=== PATIENT | male | born 1930 | race Hispanic/Latino ===

== ENCOUNTER 2017-06-12 10:43 | Inpatient (IN) | payer MEDICARE, OTHER ==
--- NOTE | 2017-06-12 11:38 | ED PDOC ---
Arrival/HPI - General Chief Complaint: Altered Mental Status Time Seen by Provider: 06/12/17 11:22 Historian: Other (neighbor) - History of Present Illness Narrative History of Present Illness (Text): 06/12/17 11:19 A 87 year old male, whose past medical history includes dementia, is brought in by neighbor and presents to the emergency department complaining of worsening dementia. Patient's neighbor reports patient was on his way to a doctor checkup appointment, accompanied by herself and niece. When attempting to get into car, patient's knees gave out and fell, where niece caught him. Denies head trauma or LOC. Niece and neighbor report that patient has increasing episodes of dementia- thought he had a doctor's appt today, is not taking his medication, and cannot safely like alone anymore. Patient denies any complaints. PMD: Dr. Archibald Past Medical History - Provider Review Nursing Documentation Reviewed: Yes - Infectious Disease Hx of Infectious Diseases: None - Tetanus Immunization Tetanus Immunization: Unknown - Past Medical History Past Medical History: Non-Contributing - Musculoskeletal/Rheumatological Hx Falls: Yes (fell prior to admission) - Psychiatric Hx Substance Use: No - Past Surgical History Past Surgical History: Non-Contributing - Anesthesia Hx Anesthesia: Yes Hx Anesthesia Reactions: No Hx Malignant Hyperthermia: No - Suicidal Assessment Feels Threatened In Home Enviroment: No Family/Social History - Physician Review Nursing Documentation Reviewed: Yes Family/Social History: No Known Family HX Smoking Status: Unknown If Ever Smoked Hx Alcohol Use: No Hx Substance Use: No Hx Substance Use Treatment: No Allergies/Home Meds Allergies/Adverse Reactions: Allergies No Known Allergies Allergy (Verified 05/30/14 15:55) Home Medications: Home Meds Medication Instructions Recorded Confirmed Esomeprazole Magnesium [Nexium 40 mg PO DAILY 06/12/17 06/12/17 24Hr] Lubiprostone [Amitiza] 24 mcg PO BID 06/12/17 06/12/17 Mirtazapine [Remeron] 1 tab PO HS 06/12/17 06/12/17 Tamsulosin [Flomax] 1 tab PO DAILY 06/12/17 06/12/17 Review of Systems - Physician Review All systems were reviewed & negative as marked: Yes - Review of Systems Constitutional: absent: Other (no head trauma) Respiratory: absent: SOB, Cough, Wheezing Cardiovascular: absent: Chest Pain Gastrointestinal: absent: Abdominal Pain, Constipation, Diarrhea, Nausea, Vomiting Musculoskeletal: absent: Arthralgias, Neck Pain Neurological: Gait Changes ("weak knees"). absent: Dizziness, Focal Weakness, Other (no LOC) Physical Exam Vital Signs Reviewed: Yes Vital Signs Temp Pulse Resp BP Pulse Ox 06/12/17 14:26 76 18 160/100 H 100 06/12/17 13:19 200/81 H 06/12/17 13:08 71 18 200/81 H 98 06/12/17 13:00 88 18 188/107 H 96 06/12/17 12:33 181/104 H 06/12/17 10:52 97.6 F 72 18 177/123 H 96 Temperature: Afebrile Blood Pressure: Hypertensive Pulse: Regular Respiratory Rate: Normal Appearance: Positive for: Well-Appearing Pain Distress: None Mental Status: Positive for: Confused. No: Alert and Oriented X 3 (oriented x [address], not in year), Agitated Finger Stick Blood Glucose: 98 - Systems Exam Head: Present: Atraumatic, Normocephalic Pupils: Present: PERRL Extroacular Muscles: Present: EOMI Conjunctiva: Present: Normal Mouth: Present: Moist Mucous Membranes Neck: Present: Normal Range of Motion Respiratory/Chest: Present: Clear to Auscultation, Good Air Exchange. No: Respiratory Distress, Accessory Muscle Use Cardiovascular: Present: Irregular Rhythm. No: Murmurs Abdomen: Present: Normal Bowel Sounds, Hernias (soft reducible hernia). No: Tenderness, Distention, Peritoneal Signs Back: Present: Normal Inspection Upper Extremity: Present: Normal Inspection. No: Cyanosis, Edema Lower Extremity: Present: Edema (scant edema) Neurological: Present: GCS=15, CN II-XII Intact, Speech Normal. No: Memory Normal Skin: Present: Warm, Dry, Normal Color. No: Rashes Psychiatric: Present: Alert. No: Oriented x 3 (oriented x [address] , not year) Medical Decision Making ED Course and Treatment: 06/12/17 11:23 Impression: 87 year old male with worsening dementia. Physical exam shows patient is alert and oriented x [address] but not in year. Plan: -- EKG -- Head CT -- Chest X-ray -- Labs -- Urinalysis -- Reassess and disposition Prior Visits: Notes and results from previous visits were reviewed. Patient was last seen in the emergency department on 05/30/2014 for severe back pain. Patient was admitted. Progress Notes: 06/12/17 11:52 Niece who has POA wants mcc placement 06/12/2017 12:[address] IMPRESSION: 1. No acute intracranial abnormality. 2. Right posterior paramedian parietal lobe cystic encephalomalacia, sequela of remote MCA territory infarction. 3. 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 4. Mild chronic microangiopathic changes and moderate age-related global parenchymal volume loss. 5. 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 No evidence of mass effect or vasogenic edema. Dictator: Qiana Dodd MD 06/12/2017 12:33 Chest X-ray IMPRESSION: Severe cardiomegaly and moderate pulmonary venous congestion. No focal consolidation. Dictator: Qiana Dodd MD 06/12/17 12:36 Ekg shows a fib at 78 bpm with non-specific ST changes. No hx of afib and noncompliant with medications. Cxray shows severe cardiomegaly and moderate pulmonary venous congestion. Trop elevated. BNP elevated. 80mg lasix given. Aspirin given. Repeat ekg shows no STEMI. Patient denies chest pain. Will need admission for new onset afib, chf, nstemi, with cardiac consult and then mcc placement. Dr. Simon covering for Dr. Dill covering for Dr. Archibald to admit. Requesting lovenox and Dr. Lozano for cardiology 06/12/17 13:13 Patient becoming increasingly more agitated and demented. Ativan and benadryl ordered. 06/12/17 15:42 - Lab Interpretations Lab Results: 06/12/17 11:33 06/12/17 11:33 Lab Results 06/12/17 11:40: Urine Color Yellow, Urine Appearance Sl cloudy, Urine pH 6.0, Ur Specific Geyser 1.015, Urine Protein 30 H, Urine Glucose (UA) Negative, Urine Ketones Negative, Urine Blood Negative, Urine Nitrate Negative, Urine Bilirubin Negative, Urine Urobilinogen 0.2, Ur Leukocyte Esterase Negative, Urine RBC Negative, Urine WBC Negative 06/12/17 11:33: Sodium 140, Potassium 3.8, Chloride 106, Carbon Dioxide 26, Anion Gap 12, BUN 23 H, Creatinine 0.7 L, Est GFR ( Amer) > 60, Est GFR ( Non-Af Amer) > 60, Random Glucose 92, Calcium 9.0, Phosphorus 3.6, Magnesium 2.0 , Total Bilirubin 1.5 H, AST 48, ALT 59 H, Alkaline Phosphatase 364 H, Lactate Dehydrogenase 542, Total Creatine Kinase 42, Troponin I 0.21 H* D, NT-Pro-B Natriuret Pep 9880 H, Total Protein 6.9, Albumin 3.5, Globulin 3.4, Albumin/ Globulin Ratio 1.0 L 06/12/17 11:33: WBC 8.4, RBC 4.52, Hgb 13.5 L, Hct 42.7, MCV 94.5, MCH 29.9, MCHC 31.6, RDW 17.0 H, Plt Count 337, MPV 10.9, Gran % 80.6 H, Lymph % (Auto) 13.3 L, Pine % (Auto) 4.9, Eos % (Auto) 0.7 L, Baso % (Auto) 0.5, Gran # 6.75 H , Lymph # 1.1 L, Pine # 0.4, Eos # 0.1, Baso # 0.04 I have reviewed the lab results: Yes - RAD Interpretation Radiology Orders: 06/12/17 11:23 HEAD W/O CONTRAST [CT] Stat CHEST ONE VIEW [RAD] Stat - Medication Orders Current Medication Orders: Discontinued Medications Aspirin (Aspirin Chewable) 324 mg PO STAT STA Stop: 06/12/17 12:17 Last Admin: 06/12/17 12:25 Dose: 324 mg Diphenhydramine HCl (Benadryl) 50 mg IVP STAT STA Stop: 06/12/17 15:19 Last Admin: 06/12/17 15:28 Dose: 50 mg IVP Administration Document 06/12/17 15:28 MARIA FERNANDA (Rec: 06/12/17 15:28 [facility] [id number]) Charges for Administration # of IVP Administrations 1 Enoxaparin Sodium (Lovenox) 80 mg SC STAT STA PRN Reason: Protocol Stop: 06/12/17 15:03 Last Admin: 06/12/17 15:28 Dose: 80 mg Subcutaneous Administrations Document 06/12/17 15:28 [email or web address] (Rec: 06/12/17 15:28 [email or web address] [id number]) Injection Site MAR Injection Site Left Abdomen Charges for Administration # of Subcutaneous Administrations 1 Furosemide (Lasix) 40 mg IVP STAT STA Stop: 06/12/17 12:29 Last Admin: 06/12/17 12:33 Dose: 40 mg MAR Blood Pressure Document 06/12/17 12:33 SE (Rec: 06/12/17 12:35 [id number]) Blood Pressure Blood Pressure (100/60-150/90) 181/104 IVP Administration Document 06/12/17 12:33 SE (Rec: 06/12/17 12:35 [id number]) Charges for Administration # of IVP Administrations 1 Furosemide (Lasix) 40 mg IVP STAT STA Stop: 06/12/17 13:13 Last Admin: 06/12/17 13:19 Dose: 40 mg MAR Blood Pressure Document 06/12/17 13:19 SE (Rec: 06/12/17 13:19 [id number]) Blood Pressure Blood Pressure (100/60-150/90) 200/81 IVP Administration Document 06/12/17 13:19 SE (Rec: 06/12/17 13:19 [id number]) Charges for Administration # of IVP Administrations 1 Lorazepam (Ativan) 2 mg IVP ONCE STA PRN Reason: Protocol Stop: 06/12/17 14:54 Last Admin: 06/12/17 15:00 Dose: 2 mg IVP Administration Document 06/12/17 15:00 SE (Rec: 06/12/17 15:00 [facility] [id number]) Charges for Administration # of IVP Administrations 1 - Scribe Statement The provider has reviewed the documentation as recorded by the Scribelva Garcia Provider Scribe Attestation: All medical record entries made by the Scribe were at my direction and personally dictated by me. I have reviewed the chart and agree that the record accurately reflects my personal performance of the history, physical exam, medical decision making, and the department course for this patient. I have also personally directed, reviewed, and agree with the discharge instructions and disposition. Disposition/Present on Arrival - Present on Arrival Any Indicators Present on Arrival: No History of DVT/PE: No History of Uncontrolled Diabetes: No Urinary Catheter: No History of Decub. Ulcer: No History Surgical Site Infection Following: None - Disposition Have Diagnosis and Disposition been Completed?: Yes Diagnosis: New onset atrial fibrillation, NSTEMI (non-ST elevated myocardial infarction), CHF (congestive heart failure), Dementia Disposition: HOSPITALIZED Disposition Time: 12:17 Patient Plan: Admission Patient Problems: Current Active Problems Problem Status Onset New onset atrial fibrillation Acute NSTEMI (non-ST elevated myocardial infarction) Acute CHF (congestive heart failure) Acute Condition: FAIR
[2017-06-12 11:48] LABS: URINE BILIRUBIN NEGATIVE (NEGATIVE); URINE BLOOD NEGATIVE (NEGATIVE); URINE GLUCOSE (UA) NEGATIVE (NEGATIVE); URINE LEUKOCYTE ESTERASE NEGATIVE Leu/uL (NEGATIVE); URINE NITRATE NEGATIVE (NEGATIVE); URINE PROTEIN 30 mg/dL (<30 mg/dL); URINE UROBILINOGEN 0.2 E.U./dL (<1 E.U./dL)
[2017-06-12 11:54] LABS: URINE APPEARANCE SL CLOUDY (CLEAR); URINE COLOR YELLOW (YELLOW)
[2017-06-12 11:55] LABS: ALBUMIN 3.5 g/dL (3.0-4.8); ALT/SGPT 59 U/L (7-56); AST/SGOT 48 U/L (17-59); BLOOD UREA NITROGEN 23 mg/dL (7-21); GFR AFRICAN-AMERICAN > 60; GFR NON-AFRICAN AMERICAN > 60
[2017-06-12 11:56] LABS: BASO # 0.04 K/mm3 (0.0-2.0); BASO % 0.5 % (0.0-3.0); EOS # 0.1 (0.0-0.7); EOS % 0.7 % (1.5-5.0); GRAN # 6.75 (1.4-6.5); GRAN % 80.6 % (50.0-68.0); HEMOGLOBIN 13.5 g/dL (14.0-18.0); LYMPH # 1.1 (1.2-3.4); LYMPH % 13.3 % (22.0-35.0); MEAN CELL VOLUME 94.5 fl (80.0-105.0); MEAN CORPUSCULAR HEMOGLOBIN 29.9 pg (25.0-35.0); MEAN CORPUSCULAR HGB CONC 31.6 g/dl (31.0-37.0); MEAN PLATELET VOLUME 10.9 fl (7.0-11.0); MONO # 0.4 (0.1-0.6); MONO % 4.9 % (1.0-6.0); RBC 4.52 10^6/uL (3.5-6.1); WHITE BLOOD COUNT 8.4 10^3/ul (4.5-11.0)
[2017-06-12 12:09] LABS: URINE RBC NEGATIVE /hpf (0-2); URINE WBC NEGATIVE /hpf (0-6)
[2017-06-12 12:10] LABS: TROPONIN I 0.21 ng/mL
[2017-06-12 12:14] LABS: B-TYPE NATRIURETIC PEPTIDE 9880 pg/mL (0-450)
--- NOTE | 2017-06-12 12:28 | CT ---
PROCEDURE: CT HEAD WITHOUT CONTRAST. HISTORY: Altered mental status COMPARISON: MRI brain without contrast from 05/31/[address] from 05/30/2014. TECHNIQUE: Axial computed tomography images were obtained through the head/brain without intravenous contrast. Radiation dose: Total exam DLP = 981.00 mGy-cm. This CT exam was performed using one or more of the following dose reduction techniques: Automated exposure control, adjustment of the mA and/or kV according to patient size, and/or use of iterative reconstruction technique. FINDINGS: HEMORRHAGE: No intracranial hemorrhage. BRAIN: There is redemonstration of cystic encephalomalacia in the right paramedian posterior parietal lobe. There is an old lacunar infarction in the right caudate head. There are mild chronic microangiopathic changes. There is a stable 1.6 x 1.2 cm partially calcified meningioma in the left posterior fossa lateral to the cerebellar hemisphere. There is no mass effect or abnormal extra-axial fluid collection. There are coarse atherosclerotic calcifications in the cavernous carotid arteries. VENTRICLES: There is moderate age-related global parenchymal volume loss and proportionate enlargement of the ventricles and cortical sulci. CALVARIUM: The skull base and calvarium are normal. PARANASAL SINUSES: Predominantly clear. MASTOID AIR CELLS: Predominantly clear. OTHER FINDINGS: None. IMPRESSION: 1. No acute intracranial abnormality. 2. Right posterior paramedian parietal lobe cystic encephalomalacia, sequela of remote MCA territory infarction. 3. 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 4. Mild chronic microangiopathic changes and moderate age-related global parenchymal volume loss. 5. 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 No evidence of mass effect or vasogenic edema.
--- NOTE | 2017-06-12 12:35 | RAD ---
PROCEDURE: CHEST RADIOGRAPH, 1 VIEW HISTORY: Altered mental status COMPARISON: CT chest without contrast from 08/29/2014 FINDINGS: LUNGS: There is moderate pulmonary venous congestion. No focal consolidation. PLEURA: No pneumothorax or pleural fluid seen. CARDIOVASCULAR: Again seen is severe cardiomegaly. OSSEOUS STRUCTURES: No significant abnormalities. VISUALIZED UPPER ABDOMEN: Normal. OTHER FINDINGS: None. IMPRESSION: Severe cardiomegaly and moderate pulmonary venous congestion. No focal consolidation.
[2017-06-12] MEDS ORDERED: Enoxaparin 80 mg Syringe SC STA (15:02)
[2017-06-12] MEDS ORDERED: DiphenhydrAMINE 50 mg/ml Inj IVP STA (15:18)
--- NOTE | 2017-06-12 16:54 | CARD ---
APPROVED REPORT EKG Measurement Heart [id number] <Conclusion> Atrial fibrillation Nonspecific ST and T wave abnormality Prolonged QT
[2017-06-12 18:08] VITALS: BMI 24.4
[2017-06-12] MEDS ORDERED: Influenza Vaccine 60 mcg/0.5 mL SYR (4YR UP) IM ONE (18:09)
[2017-06-12] MEDS ORDERED: Pneumococcal 23-Valent Vaccine IM ONE (18:09)
[2017-06-12] MEDS ORDERED: Potassium Chloride 20 mEq ER Tab PO ONE (18:10)
--- NOTE | 2017-06-13 02:03 | CON ---
DATE: 06/12/2017 CARDIAC CONSULTATION REASON FOR CONSULTATION: AFib, possibly chronic, altered mental status and advanced dementia. BRIEF CLINICAL HISTORY: This is an 87-year-old lady male with past medical history of dementia, advanced; history of chronic atrial fibrillation who recently had admitted in [facility] after a fall, and history of chronic atrial fibrillation, was on anticoagulation, was discharged to [facility], where the patient got bruised all over, so he was discontinued from Coumadin, who called his niece at his doctor's appointment, so while trying to get into the car, his knee gave out and fell down. The niece caught him and then brought here to the Emergency Room. Denies any chest pain, shortness of breath,or any palpitation. Information obtained from the niece who is at the bedside. The patient is demented and trying to get out of the bed and climbing side rail. Wants to make urine though he has a condom catheter. Unable to get any information from him. Lying, but not in apparent distress. Denies any chest pain. PAST MEDICAL HISTORY: Significant for atrial fibrillation, was on anticoagulation since 01/2017, admitted to the [place], but he was off Coumadin because of having bruised all over. Past history also significant for hypertension, hyperlipidemia, BPH, degenerative joint disease, spinal stenosis, and difficulty walking at the baseline. SOCIAL HISTORY: Denies smoking. Denies any history of alcohol abuse as per Ragini huntley. CURRENT MEDICATIONS: The patient at home was taking Flomax, Remeron, Amitiza, and Nexium. ALLERGIES: NO KNOWN DRUG ALLERGIES. REVIEW OF SYSTEMS: As per HPI. PHYSICAL EXAMINATION: VITAL SIGNS: As follows, temperature afebrile, heart rate 98, and blood pressure 157/100. HEENT: PERRLA, intact. NECK: Supple. No carotids bruits or thyromegaly.. CHEST: Clear to auscultation. HEART: S1 and S2 regular. ABDOMEN: Soft EXTREMITIES: Clubbing and cyanosis negative. LABORATORY DATA: Blood workup as follows, WBC 8.4, hemoglobin 13.1, hematocrit 42.7, and platelet count 337. Chemistry showed sodium 140, potassium 3.0, chloride 106, carbon dioxide is 26, anion gap of 12, BUN 23, creatinine 0.7. Troponin 0.21. BNP 9880. IMPRESSION: Atrial fibrillation, chronicity unknown possibly since 01/2017, hypertension, hyperlipidemia, positive troponin, possible underlying coronary artery disease, rule out non-ST segment myocardial infarction though the patient denies any chest pain. X-ray of chest shows possible cannot rule out mild congestion. Head CT was done, no intracranial hemorrhage noted. No acute intracranial abnormality noted. Encephalomalacia and remote inferior territory infarct noted, mild chronic microangiopathic changes noted consistent with the patient's age. IMPRESSION: An 87-year-old male with a past medical history of advanced dementia, chronic atrial fibrillation, hypertension, hyperlipidemia, and difficulty in walking brought by the family because his knee gave up and he fell down. Borderline troponin positive. EKG showed atrial fibrillation, rate of 69, premature ventricular contractions. RECOMMENDATION: In view of the patient, we will try to treat patient with aggressive medical treatment. 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 We will treat medically. Further recommendation depend upon the hospital course. We will follow with you. We will get lipid profile, TSH, serial troponin. Give the Lovenox and beta-mikael, nitrates, and aspirin. We may add Plavix. Xena Lozano MD
[2017-06-13] MEDS ORDERED: Enoxaparin 80 mg Syringe SC SCH (05:00)
--- NOTE | 2017-06-13 06:42 | CP.PCM.PN ---
Subjective - Date & Time of Evaluation Date of Evaluation: 06/13/17 Time of Evaluation: 06:41 - Subjective Subjective: Patient was seen at bedside because 1:1 sitter was requested. Also, Urine noted to be darker. No other complaints. Medical record was reviewed. 87 year old white male was admitted with history of fall outside of his house while going to his doctor's office, NSTEMI, new onset atrial fibrillation. PMH of BPH, dementia, chronic constipation, falls. Objective - Vital Signs/Intake and Output Vital Signs (last 24 hours): Temp Pulse Resp BP Pulse Ox 97.6 F 67 18 166/100 H 100 06/12/17 17:53 06/13/17 06:00 06/12/17 17:53 06/12/17 23:00 06/12/17 16:52 - Medications Medications: Current Medications Aspirin (Ecotrin) 81 mg PO DAILY [facility] Clopidogrel Bisulfate (Plavix) 75 mg PO DAILY [facility] Diltiazem HCl (Cardizem) 60 mg PO QID [facility] Last Admin: 06/12/17 22:02 Dose: 60 mg Furosemide (Lasix) 40 mg IV DAILY [facility] Hydralazine HCl (Apresoline) 10 mg IVP Q6 PRN PRN Reason: for SBP>170 Lorazepam (Ativan) 1 mg IVP Q6H PRN; Protocol PRN Reason: Agitation Last Admin: 06/12/17 21:52 Dose: 1 mg Metoprolol Tartrate (Lopressor) 25 mg PO BID [facility] Last Admin: 06/12/17 19:01 Dose: 25 mg - Constitutional Appears: Well, No Acute Distress - Head Exam Head Exam: ATRAUMATIC, NORMAL INSPECTION, NORMOCEPHALIC - Eye Exam Eye Exam: Normal appearance - ENT Exam ENT Exam: Normal External Ear Exam - Neck Exam Neck Exam: Normal Inspection - Respiratory Exam Respiratory Exam: NORMAL BREATHING PATTERN - Cardiovascular Exam Cardiovascular Exam: absent: JVD - GI/Abdominal Exam GI & Abdominal Exam: absent: Distended - Rectal Exam Rectal Exam: Deferred - Exam Additional comments: Deferred. - Extremities Exam Extremities Exam: Normal Inspection - Back Exam Back Exam: NORMAL INSPECTION - Neurological Exam Neurological Exam: Altered - Psychiatric Exam Psychiatric exam: Agitated - Skin Skin Exam: Normal Color Assessment and Plan - Assessment and Plan (Free Text) Assessment: Agitation. NSTEMI. Atrial fibrillation. BPH. Dementia. Plan: 1:1 Sitter. Continue present management as per PMD.
--- NOTE | 2017-06-13 10:04 | CARD ---
APPROVED REPORT EKG Measurement Heart [id number] <Conclusion> Atrial fibrillation with premature ventricular or aberrantly conducted complexes Low voltage QRS limb leads Nonspecific ST and T wave abnormality No change
[2017-06-13 11:32] LABS: BASO # 0.01 K/mm3 (0.0-2.0); BASO % 0.1 % (0.0-3.0); GRAN # 11.94 (1.4-6.5); GRAN % 87.3 % (50.0-68.0); HEMOGLOBIN 14.6 g/dL (14.0-18.0); LYMPH # 0.7 (1.2-3.4); LYMPH % 5.2 % (22.0-35.0); MEAN CELL VOLUME 92.5 fl (80.0-105.0); MEAN CORPUSCULAR HEMOGLOBIN 30.5 pg (25.0-35.0); MEAN PLATELET VOLUME 10.5 fl (7.0-11.0); MONO % 7.4 % (1.0-6.0); RBC 4.78 10^6/uL (3.5-6.1); RED CELL DISTRIBUTION WIDTH 17.1 % (11.5-14.5); WHITE BLOOD COUNT 13.7 10^3/ul (4.5-11.0)
[2017-06-13 11:45] LABS: ALB/GLOB RATIO 1.1 (1.1-1.8); CALCIUM 9.5 mg/dL (8.4-10.5); MAGNESIUM 2.1 mg/dL (1.7-2.2)
[2017-06-13 12:46] LABS: TROPONIN I 0.2 ng/mL
--- NOTE | 2017-06-13 12:46 | HP ---
06/12/2017 HISTORY OF PRESENT ILLNESS: Mr. Gonsalez is an 87-year-old male brought to the ED by a neighbor because of advanced dementia. He fell outside the house also while going to the doctor's office. He was brought to the ED by the neighbor, found to have atrial fibrillation with the rapid heart rate. There is no history of atrial fibrillation in the past. He has a history of BPH, on Flomax. No urinary problems right now. Also he has chronic constipation, has been on Amitiza 24 mcg p.o. b.i.d. No abdominal distention, no bleeding per rectum, does not report any problem with the constipation. PAST MEDICAL HISTORY: Dementia, history of falls, chronic constipation, and BPH. PAST SURGICAL HISTORY: None. ALLERGIES: NO KNOWN DRUG ALLERGIES. MEDICATIONS: Nexium 40 mg daily, Amitiza 24 mcg b.i.d., Remeron one tablet p.o. at bedtime, and Flomax one tablet daily. REVIEW OF SYSTEMS: As per HPI. Rest of 12-point review of systems reviewed and negative. PHYSICAL EXAMINATION: GENERAL: Comfortable in bed, in no acute distress. VITAL SIGNS: Temperature 97.8, heart rate is 72 per minute, respiratory is 18 per minute, blood pressure is 160/100, and pulse is 100 per minute, pulse oximetry is 98% on room air. HEENT: Normal. Oral mucosa dry. NECK: No lymphadenopathy. CHEST: Air entry present and equal bilaterally. No added sounds. CARDIOVASCULAR: Regular rhythm. No murmur. No gallop. ABDOMEN: Soft and nontender. No hepatosplenomegaly. EXTREMITIES: No edema. EKG, atrial fibrillation at 70 beats per minute. Nonspecific ST-T changes. Chest x-ray, cardiomegaly, moderate pulmonary congestion. No consolidation. LABORATORY DATA: White count 8.4, hemoglobin 13.5, hematocrit 42.7, and platelets . Sodium 140, potassium 3.8, BUN 23, creatinine 0.7, glucose 92, and total bilirubin 1.5. ASSESSMENT: 1. New onset atrial fibrillation. 2. Non-ST elevation myocardial infarction. 3. Congestive heart failure. 4. Advanced dementia. 5. Anemia. 6. Benign prostatic hyperplasia. PLAN: He will be admitted to the hospital. Aspirin 81 mg daily, Plavix 75 mg daily, diltiazem 60 mg p.o. four times a day, Lasix 40 mg IV daily, hydralazine 10 mg IV q.6 hours, and metoprolol 25 mg p.o. b.i.d. Cardiology consultation Dr. Lozano requested. Mirna Simon MD IGNACIO
[2017-06-13] MEDS: Sodium Chloride 0.9% 1,000 ML IV SCH (13:06)
--- NOTE | 2017-06-13 13:51 | PN ---
DATE: 06/13/2017 REASON FOR CONSULTATION AND FOLLOWUP: AFib, chronic altered mental status, hematuria, advanced dementia. SUBJECTIVE: The patient denies any chest pain, shortness of breath, or any palpitations, sleeping one-to-one observation. On waking up, he denies any chest pain, shortness of breath, or any palpitations. OBJECTIVE: GENERAL: Not in apparent distress. Last night, the patient was combative. Now, the patient is lying quiet. VITAL SIGNS: As follows. Temperature afebrile, heart rate 67, blood pressure 156/100. HEENT: PERRLA. Extraocular muscles intact. NECK: Supple. No carotid bruits or thyromegaly. CHEST: Clear to auscultation. HEART: S1 and S2, regular. ABDOMEN: Soft. EXTREMITIES: Clubbing and cyanosis are negative. LABORATORY DATA: Blood workup as follows: WBC 8.4, hemoglobin 13, hematocrit 42.7, and platelet count 337. Chemistry shows sodium 144, potassium 3.8, chloride 106, carbon dioxide 26, anion gap of 12, BUN 20, and creatinine 0.7. Troponin 0.27. BNP 980. IMPRESSION: Atrial fibrillation, chronic, now with rapid rate. He was on anticoagulation at one point, but stopped at [facility] because of the bruised congestive heart failure, positive troponin, advanced dementia combative and hematuria. RECOMMENDATIONS: The patient was started on Lovenox, but last night had hematuria, so this was held. Continue aspirin and Plavix. The patient has been having a condom catheter, but he keeps on pulling this and climbing on the side rails. I discussed with Mya huntley, who was at the bedside yesterday. For now, continue Cardizem 60 mg four times daily. Continue aspirin. Continue Plavix. Continue Lasix daily. Continue metoprolol 25 mg p.o. b.i.d. As mentioned, Lovenox on hold because of hematuria. Medical treatment conservative. The patient is not in a shape mental seals to go to the cardiac cath tech, is more detrimental, because the patient can pull the line and can bleed to in the cath because of dementia. He is asymptomatic. No chest pain. We will treat unstable angina medically and be managed medically. We will get echo to assess LV function and supplement potassium with electrolytes. We will follow with you. Awaiting for blood workup to be completed. We will follow serial CPK and troponin as well. Thank you Dr. Simon for providing us the opportunity in taking care of Sunshine Toribio. Xena Lozano MD
--- NOTE | 2017-06-13 16:26 | CARD ---
APPROVED REPORT EXAM: Two-dimensional and M-mode echocardiogram with Doppler and color Doppler. INDICATION 2D DIMENSIONS IVSd1.3 (0.7-1.1cm)LVDd5.0 (3.9-5.9cm) PWd1.2 (0.7-1.1cm)LVDs4.6 (2.5-4.0cm) FS (%) 8.0 %LVEF (%)17.7 (>50%) M-Mode DIMENSIONS Left Atrium (MM)5.90 (2.5-4.0cm)Aortic Root3.60 (2.2-3.7cm) Aortic Cusp Exc.2.40 (1.5-2.0cm) Aortic Valve AoV Peak Ynfmpobr124.0cm/Herminio Peak GR.5mmHgAI P 1/2 Iisc099ly Mitral Valve MV E Dsssjtlv83.8cm/s TDI Lateral E' Peak V10.40cm/sMedial E' Peak V5.21cm/sE/Lateral E'5.5 E/Medial E'10.9 Tricuspid Valve TR Peak Shaaimmy486wz/sRAP [id number] Peak Gr.59mmHg [id number] LEFT VENTRICLE The left ventricle is normal size. There is mild concentric left ventricular hypertrophy. The systolic function is moderately to severely impaired.EF-25-30% There is mild to moderate hypokinesis in the apical anterior wall. A fib No left ventricle thrombus noted on this study. There is no ventricular septal defect visualized. There is no left ventricular aneurysm. There is no mass noted in the left ventricle. RIGHT VENTRICLE The right ventricle is mildly to moderately dilated. There is normal right ventricular wall thickness. Systolic function is moderately reduced. ATRIA The left atrium is moderately dilated. The right atrium is moderately dilated. The interatrial septum is intact with no evidence for an atrial septal defect. AORTIC VALVE The aortic valve is thickened but opens well. There is moderate aortic regurgitation. There is no aortic valvular stenosis. There is no aortic valvular vegetation. MITRAL VALVE The mitral valve is thickened but opens well. Mitral regurgitation is mild. There is no mitral valve stenosis. There is no evidence of mitral valve prolapse. TRICUSPID VALVE The tricuspid valve leaflets are thickened or calcified, but open well. There is moderate to severe tricuspid regurgitation.RVSP-69 mmof hg. There is no tricuspid valve stenosis. There is no tricuspid valve prolapse or vegetation. PULMONIC VALVE The pulmonic valve is mildly thickened. There is mild pulmonic valvular regurgitation. There is no pulmonic valvular stenosis. GREAT VESSELS The aortic root is normal in size. The ascending aorta is normal in size. The pulmonary artery is normal. The IVC was not visualized. PERICARDIAL EFFUSION There is no pleural effusion. There is no pericardial effusion. <Conclusion> The left ventricle is normal size. There is mild concentric left ventricular hypertrophy. The systolic function is moderately to severely impaired.EF-25-30% There is moderate aortic regurgitation. Mitral regurgitation is mild. There is moderate to severe tricuspid regurgitation.RVSP-69 mmof hg. The IVC was not visualized. There is no pericardial effusion.
[2017-06-14] MEDS: Sodium Chloride 0.9% 1,000 ML IV SCH ×3 (09:07→23:16)
[2017-06-14 10:30] LABS: INR 1.09 (0.93-1.08); PARTIAL THROMBOPLASTIN TIME 31.5 Seconds (25.1-36.5); PROTHROMBIN TIME 12.6 SECONDS (9.4-12.5)
--- NOTE | 2017-06-14 22:45 | PN ---
DATE: 06/13/2017 SUBJECTIVE: He is comfortable in bed. He has episodes of agitation. He has a condom catheter draining bloody urine. He is currently on Lovenox for non-STEMI. He is not oriented, not alert. He is able to swallow, being said with assistance. No fever. No cough with expectoration. Vitals are stable. REVIEW OF SYSTEMS: As per HPI. Rest of 12-point review of systems reviewed and negative. PHYSICAL EXAMINATION: GENERAL: Comfortable in bed in no acute distress. VITAL SIGNS: Temperature 98.7, heart rate is 60 per minute, blood pressure 145/90, respiratory rate 16 per minute. HEENT: Normal. Sensorium altered. Non-communicative. Arousable. CHEST: Air entry present and equal bilateral. No added sounds. CARDIOVASCULAR: S1 and S2 normal. No murmur. No gallop. ABDOMEN: Soft and nontender. No hepatosplenomegaly. EXTREMITIES: No edema. Catheter draining bloody urine. RESEARCH ASSOC: Non communicative. Not alert. Moving all the limbs. No focal sensory or motor deficit. MEDICATIONS: Aspirin 81 mg daily, Plavix 75 mg daily, Cardizem 60 mg p.o. four times daily, Lasix 40 mg IV daily, hydralazine p.r.n., Ativan IV 1 mg q. 6 hours p.r.n., Lovenox b.i.d., metoprolol 25 mg p.o. b.i.d., IV fluids at 60 mL an hour. ASSESSMENT: 1. Wcr-UK-[id number] myocardial infarction. 2. Atrial fibrillation with rapid heart rate. 3. Hematuria. 4. Benign prostatic hypertrophy. 5. Anemia. PLAN: We will hold Lovenox. Troponin elevated 0.20. Continue aspirin and Plavix. Cardiology consultation appreciated. We will continue Cardizem. Heart rate is better controlled with current medications. Sensorium is alerted. He has dementia. We will start IV fluids at 60 mL an hour because of hematuria. We will continue to monitor electrolytes. No evidence of infection. UA negative. We will continue to monitor hemoglobin and hematocrit closely. Mirna Simon MD [facility] # [id number]
--- NOTE | 2017-06-15 00:09 | PN ---
DATE: 06/14/2017 SUBJECTIVE: He is comfortable in bed, in no acute distress. He has episodes of agitation. He is currently on one-to-one. He continues to have hematuria. He has a condom catheter. He continues to be on aspirin, Plavix for non-STEMI. Lovenox is on hold. Heart rate is better controlled with current medications. Hemoglobin and hematocrit has been stable. Leukocytosis is elevated, white count of 13.7. CURRENT MEDICATIONS: Aspirin 81 mg daily, Plavix 75 mg daily, Cardizem 60 mg p.o. q.i.d., Lasix 40 mg IV daily, hydralazine p.r.n., Ativan 1 mg q. 6 hours p.r.n., Lopressor 25 mg p.o. b.i.d., sodium chloride 60 mL an hour. PHYSICAL EXAMINATION: GENERAL: Comfortable in bed, in no acute distress. VITAL SIGNS: Temperature 98.7, heart rate is 108 per minute, blood pressure 140/90, respiratory rate is 16 per minute, oxygen saturation is 98% on room air. HEENT: Normal. Oral mucosa dry. NECK: No lymphadenopathy. CHEST: Air entry present and equal bilaterally. No added sounds. CARDIOVASCULAR: S1 and S2 irregular with no murmur, no gallop. ABDOMEN: Soft and nontender. No hepatosplenomegaly. EXTREMITIES: No edema. BEHAVIORAL INTERVENTIONIST: Not communicative, arousable, not oriented. Moving all the legs. SPINE: Nontender. SKIN: No petechiae. No rash. LABORATORY DATA: White count 13.7, hemoglobin 14.6, hematocrit 44.2, and platelet count 368. Sodium 146, potassium 4.4, creatinine 1.6, troponin 0.20. LFTs were within normal limits. Elevated alkaline phosphatase 356. ASSESSMENT: 1. Hematuria. 2. Non-ST elevation myocardial infarction. 3. Leukocytosis. 4. Benign prostatic hyperplasia. 5. Atrial fibrillation, heart rate controlled with current medications. PLAN: We will hold Plavix tomorrow. Urology consultation with Dr. Lujan is requested. Gentle hydration at 60 mL an hour normal saline. We will continue to monitor hemoglobin, hematocrit. Cardiology consultation with Dr. Lozano appreciated. Heart rate better controlled with current medications. Mirna Simon MD [facility] # [id number]
--- NOTE | 2017-06-15 01:04 | PN ---
DATE: SUBJECTIVE: I was asked to evaluate the patient because of bradycardia and hypertension. The patient has dementia and does not communicate. He is on one-to-one watch. He did eat some of his dinner. PHYSICAL EXAMINATION: VITAL SIGNS: Blood pressure 145/90, heart rate 60, earlier heart rate was 45 and then 55 beats per minute, respirations 21, and temperature 97.3. HEENT: Normocephalic. CHEST: Diminished breath sounds. HEART: S1 and S2 regular. EXTREMITIES: Trace leg edema. LABORATORY DATA: Yesterday's troponin 0.2. Yesterday's BUN and creatinine 38 and 1.6. Echocardiac study performed yesterday revealed mild concentric LVH with ejection fraction in the range of 25% to 30%, moderate aortic insufficiency. EKG revealed atrial fibrillation at a rate of 69. PVCs versus aberrancy, prolonged QT interval, anterior ischemic Q-wave changes, that EKG was done 2 days ago on 06/12/2017. ASSESSMENT: 1. Atrial fibrillation initially rapid, currently with slow ventricular response. 2. Borderline troponin elevation, consider non-ST elevation myocardial infarction. 3. Chronic renal insufficiency. 4. Advanced dementia. 5. History of recent hematuria. CONDITIONS: Hold Cardizem and Lopressor for now. Continue aspirin at 81 mg once a day, Plavix 75 mg once a day, and hydralazine at 10 mg intravenously q.6 hour p.r.n. We will evaluate the patient tomorrow for resumption of either Cardizem or Lopressor or both. Fuentes Ewing MD
[2017-06-15] MEDS: Sodium Chloride 0.9% 1,000 ML IV SCH ×2 (15:15→17:29)
--- NOTE | 2017-06-15 18:53 | PN ---
DATE: SUBJECTIVE: The patient's lowest heart rate today was 60 and high is 75. He ate his lunch and he is on one-to-one watch. PHYSICAL EXAMINATION: VITAL SIGNS: Blood pressure 139/90, heart rate 75, temperature 97.5 and respirations 20. HEENT: Normocephalic. CHEST: Diminished breath sounds at the bases. HEART: S1 and S2 regular. ABDOMEN: Soft. EXTREMITIES: No edema. ASSESSMENT: 1. Atrial fibrillation with recently slow ventricular response since yesterday. 2. Borderline troponin elevation, consider non-ST elevation myocardial infarction. 3. Advanced dementia. 4. Chronic renal insufficiency. 5. History of recent hematuria. RECOMMENDATIONS: Continue current Lasix 40 mg intravenously once a day, Lopressor is still on hold, Cardizem at 60 mg four times a day and aspirin 81 mg once a day. Future anticoagulation will be discussed with Dr. Lozano. Fuentes Ewing MD
--- NOTE | 2017-06-16 00:32 | PN ---
DATE: 06/15/2017 SUBJECTIVE: The patient has no complaints of any chest pain. No shortness of breath. No headaches. PHYSICAL EXAMINATION: VITAL SIGNS: Temperature is 98, pulse is 65, blood pressure is 124/78, and respirations are 18. GENERAL: The patient is lying in bed, flat, comfortable. HEENT: No oral lesion. Anicteric sclerae. Moist mucosa. NECK: No JVD, adenopathy, or thyromegaly. CARDIOVASCULAR: S1 and S2, regular. No murmurs, rubs, or gallops. LUNGS: Clear to auscultation bilaterally. No wheeze, rales, or rhonchi. ABDOMEN: Bowel sounds are positive, soft, nontender and nondistended. EXTREMITIES: No cyanosis, clubbing or edema. ASSESSMENT: 1. Hematuria. 2. Non-ST elevation myocardial infarction. 3. Benign prostatic hyperplasia. 4. Atrial fibrillation. 5. Dementia. 6. Hematuria. PLAN: The patient is currently comfortable. The patient is on Cardizem. He is receiving aspirin. The patient is on Lasix daily. He is receiving IV fluids as well. I will discontinue his IV fluids. He is being followed by Dr. Lujan from Urology. He is being followed by Cardiology. He is on a on-to-one. . Modesto Jones MD
[2017-06-16 10:34] LABS: BASO # 0.03 K/mm3 (0.0-2.0); BASO % 0.2 % (0.0-3.0); EOS # 0.3 (0.0-0.7); EOS % 2.5 % (1.5-5.0); GRAN # 11.48 (1.4-6.5); GRAN % 85.3 % (50.0-68.0); HEMOGLOBIN 14.3 g/dL (14.0-18.0); LYMPH # 0.5 (1.2-3.4); LYMPH % 3.7 % (22.0-35.0); MEAN CELL VOLUME 93.2 fl (80.0-105.0); MEAN CORPUSCULAR HEMOGLOBIN 29.7 pg (25.0-35.0); MEAN CORPUSCULAR HGB CONC 31.8 g/dl (31.0-37.0); MEAN PLATELET VOLUME 10.7 fl (7.0-11.0); MONO # 1.1 (0.1-0.6); MONO % 8.3 % (1.0-6.0); PLATELET COUNT 290 10^3/uL (120.0-450.0); RBC 4.82 10^6/uL (3.5-6.1); RED CELL DISTRIBUTION WIDTH 16.7 % (11.5-14.5); WHITE BLOOD COUNT 13.5 10^3/ul (4.5-11.0)
[2017-06-16 10:55] LABS: ALB/GLOB RATIO 0.8 (1.1-1.8); ALBUMIN 2.8 g/dL (3.0-4.8); ALT/SGPT 29 U/L (7-56); AST/SGOT 26 U/L (17-59); BLOOD UREA NITROGEN 42 mg/dL (7-21); CALCIUM 8.4 mg/dL (8.4-10.5); GFR AFRICAN-AMERICAN > 60; GFR NON-AFRICAN AMERICAN > 60; MAGNESIUM 1.8 mg/dL (1.7-2.2)
[2017-06-16 11:32] LABS: BAND 1 % (0-2); EOSINOPHIL 2 % (0.0-3.0); LYMPHOCYTE 7 % (22.0-35.0); MONOCYTE 3 % (1.0-6.0); NEUTROPHIL 87 % (50.0-70.0); PLATELET ESTIMATE NORMAL (NORMAL)
[2017-06-16] MEDS: Potassium Chloride 20 mEq ER Tab PO SCH (12:12)
[2017-06-16] MEDS ORDERED: Potassium Chloride 20 mEq ER Tab PO ONE (14:00)
--- NOTE | 2017-06-16 16:31 | PN ---
DATE: 06/16/2017 REASON FOR CONSULTATION AND FOLLOWUP: Atrial fibrillation with slow heart rate. SUBJECTIVE: The patient denies any chest pain, shortness of breath, or any palpitation. OBJECTIVE: GENERAL: The patient denies chest pain and one-to-one observation. VITAL SIGNS: As follows. Temperature afebrile, heart rate 76, and blood pressure 134/60. HEENT: PERRLA. Extraocular muscles intact. NECK: Supple. No carotid bruits or thyromegaly. CHEST: Clear to auscultation. HEART: S1 and S2, regular. ABDOMEN: Soft. EXTREMITIES: Clubbing and cyanosis are negative. LABORATORY DATA: Blood workup as follows: WBC 13.5, hemoglobin 14.0, hematocrit 44.9, and platelet count 290. Chemistry shows sodium 144, potassium 3, chloride 107, carbon dioxide 30, anion gap of 11, BUN 42, and creatinine 0.9. IMPRESSION: Severe hypokalemia, protein-calorie malnutrition, atrial fibrillation with rapid rate now rate is well controlled, demented, borderline troponin, ST elevation, chronic renal insufficiency, history of recent hematuria off Lovenox because of blessing hematuria. The patient had echocardiography done on 06/13/2017 that showed ejection fraction 25% to 30%, moderate aortic regurgitation, moderate to severe tricuspid regurgitation, right ventricular systolic pressure 69. RECOMMENDATIONS: Adjust Cardizem change to 4 times a day . Continue metoprolol. We will change Cardizem to 30 mg 4 times a day with holding parameter. The patient is not anticoagulation because of blessing hematuria started and Lovenox held because of blessing hematuria. If the patient can tolerate, we will continue Plavix. We will supplement potassium and decrease Cardizem to 30 with holding parameter. We will follow with you. 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 We will treat medically asymptomatic. Thank you Dr. Simon for providing us the opportunity in taking care of the patient, Catarino Gonsalez. Xena Lozano MD
[2017-06-16] MEDS: Potassium & Sodium Phosphate PO SCH (17:02)
--- NOTE | 2017-06-17 08:17 | CON ---
DATE: 06/16/2017 GENITOURINARY CONSULTATION CHIEF COMPLAINT: Gross hematuria. HISTORY OF PRESENT ILLNESS: This is an 87-year-old male, who is seen in his room at [facility]. The patient was admitted for worsening dementia and falling at home, neighbor called EMS as they either noticed him falling or his worsening dementia and altered mental status. He was brought to the emergency department, he was found to have new onset atrial fibrillation with rapid ventricular rate. At some point, the patient was anticoagulated, he was noted to have gross hematuria, and consultation was requested. By history, he has BPH and has been on Flomax. Reportedly, he was voiding without any difficulty other than the hematuria. He now has a Mir catheter in place. The patient is awake and alert and answering questions, but unable to give a history given his advanced dementia. PAST MEDICAL HISTORY: Significant for dementia, history of falls, chronic constipation, and BPH. MEDICATIONS AT HOME: Included Nexium, Amitiza, Remeron and Flomax. Currently on aspirin and Plavix, as well as Lasix, potassium, hydralazine, Ativan, and Cardizem. ALLERGIES: NO KNOWN DRUG ALLERGIES. FAMILY HISTORY: Noncontributory to this admission. SOCIAL HISTORY: No reported smoking or EtOH use. REVIEW OF SYSTEMS: As per the HPI. The patient is currently denying any acute issues. PHYSICAL EXAMINATION: GENERAL: The patient is awake and alert. He is in no acute distress. VITAL SIGNS: He is afebrile, temperature of 97.7, pulse 76, respirations 20, and BP 130/67. NECK: Supple. There is no adenopathy. CHEST: Examination of the chest reveals a normal inspiratory effort. CARDIAC: Exam shows an irregular rhythm. There is trace peripheral edema noted. ABDOMEN: On abdominal exam, the abdomen is soft, nontender, nondistended. There is no hepatosplenomegaly. There is no costovertebral angle tenderness. : On exam, phallus is normal. Scrotum is normal. Testes bilaterally descended, nontender, no masses. Epididymis are normal. There is a Mir catheter in place which is draining clear colored urine. LABORATORY EXAM: WBC count elevated at 13.5. BNP was 9880 from 06/12, creatinine 0.9 with a GFR of greater than 60. Urinalysis from 06/12 showed positive for protein, negative blood, negative rbc, negative wbc. Urine culture from the Mir grew coagulase-negative Staphylococcus. RADIOLOGIC EXAM: No pertinent urologic x-rays were done. IMPRESSION AND PLAN: This is an 87-year-old male with history of benign prostatic hypertrophy. Urologically, the patient is currently stable, Mir catheter in place, his GFR is normal. As far the finding of hematuria, this is likely secondary to Mir trauma and anticoagulation with Plavix and aspirin. The patient has been maintained on Flomax and I would consider a voiding trial when his status has improved. We will need to check a postvoid residual after the catheter is removed. It is unclear if the patient is going home or to rehab given his advanced dementia, but we will likely need a long-term plan regarding this patient given his current status. Thank you for allowing me to participate in the care of this patient. We will follow him with you. Jaime Lujan MD
--- NOTE | 2017-06-17 08:17 | CON ---
DATE: 06/16/2017 PRESENTATION: The patient is an 87-year-old male seen at the bedside, one-to-one in attendance. He has extensive bruising on his left arm, which he is really unable to tell me what happened there. The patient was admitted to the hospital on 06/12/2017, indicates that he fell when he was going from one car to the other. He was not able to tell me what he was doing, going in the car, he was unable to tell me who was with him other than they brought him here to the hospital, he was unsure what hospital because they brought him here and did not say which one, and I did remind him it was [facility], he was not able to tell me later on in our conversation what hospital he was in. He indicates that he fell down, he was not hurt and they brought him here, anyway he wants to go back home. Evidently, he had a niece with him who indicates that his dementia was getting worse and that is a concern. Consult was called due to the patient is needing one-to-one and having combative behavior. It appears that from what little history there is that the patient has been diagnosed with dementia and it is worsening according to his niece. The patient is oriented only to who he is. He is not able to tell me the year, the date, the time, the president, or anything that is going on in the news, though he does claim to watch the news everyday. He indicates he lives alone, he never , and he is always taking care of himself for the last 30 years. 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 He indicates that he has an apartment, that he sometimes goes and buys his own food. He says he is not so much of a cook, so that is an issue because he enjoys his food, he enjoys eating. He indicates that he is able to upkeep his apartment as well. He denies ever been seeing a psychiatrist or ever having been taking any psychiatric medication in the past or ever having any suicidal thoughts or trying to kill himself. He is unable to tell me anything about his medical history. He denies ever using alcohol or drugs. He denies any access to weapons. He was not able to tell me any family psychiatric history or much of a psychosocial history other than that he fell, other than that he graduated from high school and he worked as a flanging machine operator and he has never been and has no children. The patient's current vital signs include heart rate of 73 and blood pressure of 130/67. The patient as of 06/15/2017 was found to have coagulase-negative Staph in his urine. Urinary tract infection would certainly cause some changes in the patient's behavior and consciousness at this age. LABORATORY DATA: Labs were reviewed. His white blood cell count today is 13.5, which is down from yesterday, 06/13/2017, which was 13.7. MENTAL STATUS: The patient is alert, but only oriented to who he is. He does relate he is in the hospital if I push him, but he is unable to remember the hospital even after I have told him and I am asking him again for the second time and later on in the conversation. He is pleasantly confused and cooperative evidently. According to the nurses's notes, he was combative during the night. One issue here is that the patient is extremely hard of hearing. I have to yell very loudly for him to hear me and sits close to him. He denies being suicidal or homicidal. Denies the presence of hallucinations, delusions, or paranoia. His concentration and focus are poor. His memory both short and long-term have significant impairment. His appetite and his sleep, he indicates, are good. DIAGNOSTIC IMPRESSION: Dementia with behavioral disturbance and possible delirium due to urinary tract infection. PLAN: The patient has poor orientation and exam indicates that he has very poor ability to recall. I would wonder whether or not he is able to care of himself in his home and what conditions at home actually he is in. He is pleasant at this point in time, but he is significantly confused. He does not appear to be of any imminent danger to himself or others; however, he does require supervision. I understand according to the notes that social media intern is involved in terms of placement for this patient. This case has been discussed with Dr. Goldberg. We are signing off. Please call if there are further issues with this patient. Ragini Negrete APN [facility] # [id number] IGNACIO
--- NOTE | 2017-06-17 08:19 | PN ---
DATE: 06/16/2017 SUBJECTIVE: The patient is an 87-year-old seen and examined, lying in bed, seemed to be confused, disoriented, not in any distress. Does not offer any complaint. As per nurse, did not eat that well. He is on one-to-one currently because of his confusion and high risk fall. The patient has been draining clear urine. No evidence of hematuria. PHYSICAL EXAMINATION: VITAL SIGNS: He is afebrile, pulse 73, respirations 18, and blood pressure 136/67. LUNGS: Bilateral fair airflow. Diffusely decreased breath sounds. HEART: S1 and S2, audible. Irregular, but rate controlled. ABDOMEN: Soft and nontender. No rebound. No guarding. NEUROLOGIC: The patient is confused, disoriented, able to move all extremities, unable to comprehend his conversation. LABORATORY DATA: His echocardiogram shows normal ventricular size, mild concentric LVH and EF is 25-30%. Today's laboratory exam; WBC 13.5, hemoglobin 14, hematocrit 44, and platelets 290. Chemistry; sodium 144, potassium 3.0, chloride 107, CO2 30, BUN 42, creatinine 0.9, blood sugar of 128, phosphorus 2.3, alkaline phosphatase is 193, and albumin is 2.8. ASSESSMENT: 1. Altered mental status. 2. Coagulase-negative Staphylococcus urinary tract infection. 3. Atrial fibrillation. 4. Dilated cardiomyopathy with ejection fraction of 15-20%. 5. Benign prostatic hyperplasia. 6. Dementia. 7. Non-ST elevation myocardial infarction PLAN: Currently, the patient is on diltiazem 60 mg four times a day and aspirin 81 daily. He is on Lasix. Continue him on beta-mikael. He is also getting Plavix. Get out of bed to chair. Physical therapy evaluation has been requested. I will try to discuss with the patient's niece who is next of kin about disposition plan. We will also supplement the potassium and supplement with Neutra-Phos. Parish Dill MD
[2017-06-17] MEDS: Potassium Chloride 20 mEq ER Tab PO SCH (08:23)
[2017-06-17] MEDS: diltiaZEM 120 mg/24 Hours CD Cap PO SCH (10:04)
[2017-06-17] MEDS: Potassium & Sodium Phosphate PO SCH ×2 (10:04→18:08)
[2017-06-17 11:09] LABS: BASO # 0.03 K/mm3 (0.0-2.0); BASO % 0.2 % (0.0-3.0); EOS # 0.3 (0.0-0.7); EOS % 1.8 % (1.5-5.0); GRAN # 13.47 (1.4-6.5); GRAN % 86.6 % (50.0-68.0); HEMOGLOBIN 14.9 g/dL (14.0-18.0); LYMPH # 0.9 (1.2-3.4); LYMPH % 5.5 % (22.0-35.0); MEAN CELL VOLUME 94.6 fl (80.0-105.0); MEAN CORPUSCULAR HEMOGLOBIN 29.8 pg (25.0-35.0); MEAN CORPUSCULAR HGB CONC 31.5 g/dl (31.0-37.0); MEAN PLATELET VOLUME 10.6 fl (7.0-11.0); MONO # 0.9 (0.1-0.6); MONO % 5.9 % (1.0-6.0); RED CELL DISTRIBUTION WIDTH 16.7 % (11.5-14.5); WHITE BLOOD COUNT 15.6 10^3/ul (4.5-11.0)
[2017-06-17 11:28] LABS: ALB/GLOB RATIO 0.9 (1.1-1.8); ALBUMIN 2.9 g/dL (3.0-4.8); ALT/SGPT 23 U/L (7-56); AST/SGOT 24 U/L (17-59); BLOOD UREA NITROGEN 31 mg/dL (7-21); CALCIUM 8.4 mg/dL (8.4-10.5); GFR AFRICAN-AMERICAN > 60; GFR NON-AFRICAN AMERICAN > 60; MAGNESIUM 1.8 mg/dL (1.7-2.2)
--- NOTE | 2017-06-17 14:16 | PN ---
DATE: 06/17/2017 REASON FOR CONSULTATION AND FOLLOWUP: Atrial fibrillation with slow heart rate, now with moderate rate. SUBJECTIVE: Denies any chest pain, shortness of breath, or any palpitation. Yesterday, niece was at the bedside, explained the patient's condition and overall treatment and prognosis. OBJECTIVE: GENERAL: The patient is not in apparent distress lying flat in the bed, one to one, on waking up denies any chest pain. VITAL SIGNS: As follows: Temperature afebrile, heart rate 65, and blood pressure 102/66. HEENT: PERRLA. Extraocular muscles intact. NECK: Supple. No carotid bruits or thyromegaly. CHEST: Clear to auscultation. HEART: S1 and S2, regular. ABDOMEN: Soft. EXTREMITIES: Clubbing and cyanosis are negative. LABORATORY DATA: Blood workup as follows: WBC 13.5, hemoglobin 14.0, hematocrit 44.9, and platelet count 290. Chemistry shows sodium 144, potassium 3, chloride 107, carbon dioxide 30, anion gap of 11, BUN 42, and creatinine 0.9. IMPRESSION: Acute kidney injury on chronic renal insufficiency, improved; troponin positive, could be underlying coronary artery disease; true non-ST segment myocardial infarction versus secondary to hemodynamic instability and congestive heart failure, as well as, acute kidney injury, creatinine clearance at that time was 40 mL; atrial fibrillation; hypertension; possible dementia, advanced; severe hypokalemia; protein-calorie malnutrition, which was not present on admission. The patient had echocardiography done on 06/13/2017 that revealed ejection fraction 25%, moderate aortic regurgitation, moderate severe tricuspid regurgitation, right ventricular systolic pressure 69 mmHg. RECOMMENDATIONS: We will continue Cardizem CD 120 mg daily changed from 30 mg 4 times a day to . Continue low-dose beta-mikael. Continue Plavix for 4 weeks. Not a candidate for anticoagulation, because of the patient started bleeding gross hematuria when put on Lovenox. Also the patient is pulling the line and catheter, it is very dangerous and high risk of fall in the future as well, so continue aspirin, continue Plavix for 4 weeks, after that Plavix had come off because of non-ST elevation myocardial infarction; atrial fibrillation, again the patient is not anticoagulation because the patient has hematuria, on Lovenox discontinued. Continue Cardizem, continue beta-mikael. Discussed in length with Mya, niece, his power of health care attorney. Explained the patient's condition and line of treatment because of underlying dementia and agitation. He is not a candidate to go for cardiac catheterization and asymptomatic. The patient is agreeable to proceed for medical treatment. We will DC telemetry. We will change Cardizem to CD and discharge planning. Thank you Dr. Dill for providing us the opportunity in taking care of the patient, Catarino Gonsalez. Xena Lozano MD
[2017-06-17] MEDS: POLYETHYLENE GLYCOL 3350 17 GM/Dose PACKET PO SCH (18:08)
[2017-06-18 06:37] LABS: BASO # 0.03 K/mm3 (0.0-2.0); BASO % 0.3 % (0.0-3.0); EOS # 0.5 (0.0-0.7); EOS % 4.1 % (1.5-5.0); GRAN # 9.41 (1.4-6.5); GRAN % 78.7 % (50.0-68.0); HEMOGLOBIN 14.9 g/dL (14.0-18.0); LYMPH # 1.1 (1.2-3.4); LYMPH % 9.5 % (22.0-35.0); MEAN CELL VOLUME 92.2 fl (80.0-105.0); MEAN CORPUSCULAR HGB CONC 32.5 g/dl (31.0-37.0); MONO # 0.9 (0.1-0.6); MONO % 7.4 % (1.0-6.0); RBC 4.97 10^6/uL (3.5-6.1); RED CELL DISTRIBUTION WIDTH 16.5 % (11.5-14.5)
[2017-06-18 06:59] LABS: BLOOD UREA NITROGEN 28 mg/dL (7-21); CALCIUM 8.6 mg/dL (8.4-10.5); GFR AFRICAN-AMERICAN > 60; GFR NON-AFRICAN AMERICAN > 60; MAGNESIUM 1.8 mg/dL (1.7-2.2)
[2017-06-18 07:03] LABS: INR 1.12 (0.93-1.08); PROTHROMBIN TIME 12.9 SECONDS (9.4-12.5)
--- NOTE | 2017-06-18 08:31 | PQF CHF ---
This form is a permanent part of the medical record Clarification of your documentation is requested to better reflect the severity of illness and intensity of treatment of your patient. Indicators present Pt w/ hx CHF, BNP 9880, CXR- mod PV congestion, ECHO- systolic function is moderately to severely impaired.EF-25-30% . Please document acuity & type of CHF POA [x] Diagnosis of CHF and/or history of CHF [x] BNP > 200 [x] Imaging Finding of Pulmonary Edema /Pleural Effusions [] Fluid/Volume Overload [] Pitting edema [x] Ejection Fraction < 40% (Indicative of Systolic Heart Failure) [] Ejection Fraction > 40% (Indicative of Diastolic Heart Failure) [x] Dyspnea / Orthopenea / Paroxysmal Nocturnal Dyspnea [] Other: Location in the medical record that reflects the above clinical findings: [x] ECHO Treatment Provided: [x] IV Lasix PHYSICIAN'S RESPONSE Based on your medical judgment of the clinical indicators outlined above, are you treating this patient for a known or suspected: [] Acute CHF [] Systolic [] Diastolic [] Combined [] Chronic CHF [] Systolic [] Diastolic [] Combined [x] Acute on Chronic CHF [x]Systolic [] Diastolic [] Combined [] CHF due hypertension [] Acute systolic []Chronic systolic [] Acute/ chronic systolic [] Other, please indicate: [] [] If Unable to Determine, please check the box, sign and date. Present On Admission (POA) Indicator: [] Present at the time of admission [] Not present at the time of admission [] Clinically Undetermined In responding to this query, please exercise your independent professional judgment. The fact that a question is asked does not imply that any particular answer is desired or expected. Thank you for your clarification on this documentation. If you have any questions please call:[ ][phone] * Thank you, [ ]Nataly Santana RN CDS [employer] [facility]
[2017-06-18] MEDS: Potassium Chloride 20 mEq ER Tab PO SCH (08:38)
--- NOTE | 2017-06-18 09:17 | PN ---
DATE: 06/17/2017 SUBJECTIVE: The patient is an 87-year-old seen and examined. Seems to be confused and disoriented. Agitated at times. No more hematuria noted. Eating fair. PHYSICAL EXAMINATION: VITAL SIGNS: He is afebrile, pulse 76, respirations 18, and blood pressure 102/66. LUNGS: Bilateral good airflow. No rhonchi or crackles. HEART: S1 and S2 audible. ABDOMEN: Soft and nontender. No rebound. No guarding. NEUROLOGIC: He is confused and disoriented. He has indwelling catheter and it is draining clear urine. Bilateral leg +1 edema. LABORATORY DATA: WBC 15.6, hemoglobin 14.9, hematocrit 47, and platelets of 271. Chemistry; sodium 147, potassium 3.2, chloride 108, CO2 32, BUN 31, creatinine 0.7, blood sugar 101, phosphorus is 2.2, and total bilirubin is 1.6. His echocardiogram shows left ventricular dysfunction with ejection fraction of 25% to 30%. ASSESSMENT: 1. Altered mental status. 2. Coagulase-negative streptococcus urinary tract infection sensitive to nitrofurantoin. 3. Electrolyte imbalance. 4. Improving renal insufficiency. 5. Deconditioning and difficulty walking. 6. Hypomagnesemia. 7. Non-ST elevation myocardial infarction. PLAN: Discussed with the patient's niece Mya. She prefer him to go to [facility] and get physical therapy. She does not like him to go to [facility] since she lived close to [place]. However, in the meantime, we will start the patient on nitrofurantoin. We will supplement potassium. We will supplement magnesium and currently he is on Plavix and we will revaluate the patient in a.m. Parish Dill MD
[2017-06-18] MEDS ORDERED: Potassium Chloride 20 mEq ER Tab PO STA (10:03)
[2017-06-18] MEDS ORDERED: Potassium Chloride 20 mEq ER Tab PO ONE (10:03)
[2017-06-18] MEDS: diltiaZEM 120 mg/24 Hours CD Cap PO SCH (10:55)
[2017-06-18] MEDS: POLYETHYLENE GLYCOL 3350 17 GM/Dose PACKET PO SCH ×2 (10:59→18:01)
[2017-06-18] MEDS: Potassium & Sodium Phosphate PO SCH ×2 (11:00→18:01)
--- NOTE | 2017-06-18 12:54 | PN ---
DATE: REASON FOR CONSULTATION AND FOLLOWUP: Atrial fibrillation with slow heart rate, now rate is moderate. SUBJECTIVE: The patient denies any chest pain, shortness of breath or any palpitation. Lying flat, not in apparent distress. The patient is now 3R 362, bed 1. OBJECTIVE: VITAL SIGNS: As follows: Temperature afebrile, heart rate 59, and blood pressure 144/76. HEENT: PERRLA. Extraocular muscles intact. NECK: Supple. No carotid bruits or thyromegaly. CHEST: Clear to auscultation. HEART: S1 and S2, regular. ABDOMEN: Soft. EXTREMITIES: Clubbing and cyanosis negative. LABORATORY DATA: Blood workup as follows: WBC 12.4, hemoglobin 14.9, hematocrit 45.8, and platelet count 290. Chemistry shows sodium 144, potassium 3, chloride 105, carbon dioxide 32, anion gap of 11, BUN 28, creatinine 0.7, and phosphorous 2.2. IMPRESSION: Hypophosphatemia, protein-calorie malnutrition, which is not present on admission, mild altered mental status, dementia, hematuria on anticoagulation, atrial fibrillation now rate is controlled, acute kidney injury improved, borderline troponin positive secondary to renal insufficiency, hemodynamic instability due to underlying coronary artery disease, non-ST segment myocardial infarction, hypertension, atrial fibrillation, hypokalemia, hypophosphatemia, cardiomyopathy ejection fraction of 25% on most recent echo 06/23/2017, moderate aortic regurgitation, [id number] tricuspid regurgitation, and mild mitral regurgitation. The patient is not a candidate to go for invasive workup. The patient is pulling the line, pulling the condom catheter. Not a candidate for long-term anticoagulation because of the hematuria. RECOMMENDATIONS: Continue rate controlled with beta-mikael and Cardizem, which is well controlled. Continue Plavix for four weeks. Supplement electrolytes aggressively. We will follow with you. Aggressive medical treatment. No invasive cardiac workup is planned for this kind of patient. Discussed with niece, name is twice. Possible discharge planning. Xena Lozano MD
--- NOTE | 2017-06-18 19:27 | PN ---
DATE: SUBJECTIVE: The patient is an 87-year-old seen and examined, seem to be more cooperative, and more alert, but confused and disoriented. Eating fair. PHYSICAL EXAMINATION: VITAL SIGNS: He is afebrile, pulse 59, respirations 18, and blood pressure 144/76. LUNGS: Bilateral good airflow. No rhonchi or crackles. HEART: S1 and S2 audible. ABDOMEN: Soft, obese, and nontender. No rebound. No guarding. NEUROLOGIC: He is awake and alert. More confused and disoriented. Bilateral leg no edema. Indwelling catheter has clear urine, no hematuria. LABORATORY DATA: WBC 12, hemoglobin 14, hematocrit 45, and platelets 290. Chemistry; sodium 144, potassium 3.0, chloride 105, CO2 32, BUN 28, creatinine 0.7, blood sugar of 87. Urine culture positive for coag negative Staphylococcus, sensitive to nitrofurantoin, that has been started yesterday. ASSESSMENT: 1. Status post altered mental status. 2. Streptococcus aureus urinary tract infection. 3. Dementia. 4. Non-ST elevation myocardial infarction. 5. Hematuria probably traumatic. 6. Status post electrolyte imbalance. 7. Atrial fibrillation, but rate controlled. PLAN: The patient is currently on diltiazem 120 daily. He is on aspirin 81 daily and Flomax. His potassium is being supplemented. Continue him on nitrofurantoin. Continue Plavix 75 daily. Discuss with the patient's niece, Ragini, who is interested subacute rehab and possibly long-term. Parish Dill MD
[2017-06-19] MEDS: diltiaZEM 120 mg/24 Hours CD Cap PO SCH ×2 (10:00→15:21)
[2017-06-19] MEDS: Potassium & Sodium Phosphate PO SCH ×5 (10:01→18:44)
[2017-06-19] MEDS: POLYETHYLENE GLYCOL 3350 17 GM/Dose PACKET PO SCH ×2 (10:01→18:44)
[2017-06-19 10:39] LABS: HEMOGLOBIN 14.9 g/dL (14.0-18.0); MEAN CELL VOLUME 95.5 fl (80.0-105.0); MEAN CORPUSCULAR HEMOGLOBIN 30.2 pg (25.0-35.0); MEAN CORPUSCULAR HGB CONC 31.6 g/dl (31.0-37.0); MEAN PLATELET VOLUME 10.5 fl (7.0-11.0); RBC 4.94 10^6/uL (3.5-6.1); RED CELL DISTRIBUTION WIDTH 16.2 % (11.5-14.5); WHITE BLOOD COUNT 9.8 10^3/ul (4.5-11.0)
[2017-06-19 10:53] LABS: ALB/GLOB RATIO 0.8 (1.1-1.8); ALT/SGPT 34 U/L (7-56); AST/SGOT 23 U/L (17-59); BLOOD UREA NITROGEN 22 mg/dL (7-21); CALCIUM 8.7 mg/dL (8.4-10.5); GFR AFRICAN-AMERICAN > 60; GFR NON-AFRICAN AMERICAN > 60
[2017-06-19] MEDS ORDERED: Potassium Chloride 20 mEq ER Tab PO ONE (11:31)
--- NOTE | 2017-06-19 16:06 | PN ---
DATE: SUBJECTIVE: The patient is an 87-year-old, seen and examined. He is sleepy, but arousable according to nurse. He was given Ativan in the middle of night and since then he has been sleepy. PHYSICAL EXAMINATION: VITAL SIGNS: He is afebrile, pulse 72, respirations 22, and blood pressure 140/80. LUNGS: Bilateral fair airflow. No rhonchi or crackles. HEART: S1 and S2 audible. ABDOMEN: Soft, nontender. No rebound. No guarding. EXTREMITIES: He has bruises on both arms because of anticoagulation. Bilateral legs, no edema. LABORATORY DATA: WBC is 9.8, hemoglobin 14, hematocrit 47, platelet 279. Chemistry: Sodium 144, potassium 3.4, chloride 105, CO2 of 31, BUN 22, creatinine 0.6, blood sugar of 89. His urine analysis showed coag negative staphylococcus. ASSESSMENT: 1. Status post altered mental status. 2. Worsening dementia. 3. Vascular dementia. 4. Hypokalemia. 5. Poor oral intake. 6. Benign prostatic hypertrophy. 7. Electrolyte imbalance. PLAN: So, patient's medications reviewed, seemed to be appropriate. Subacute rehab, placement is in progress. Parish Dill MD
--- NOTE | 2017-06-19 17:05 | PN ---
DATE: 06/19/2017 REASON FOR CONSULTATION AND FOLLOWUP: Atrial fibrillation with slow heart rate, now rate is moderate. SUBJECTIVE: The patient denies any chest pain, shortness of breath, or any palpitation. OBJECTIVE: GENERAL: Not in apparent distress. VITAL SIGNS: Temperature is afebrile, heart rate 72, blood pressure 140/80. HEENT: PERRLA. Extraocular muscles intact. NECK: Supple. No carotid bruits or thyromegaly. CHEST: Clear to auscultation. HEART: S1, S2, regular. ABDOMEN: Soft. EXTREMITIES: Clubbing and cyanosis negative. LABORATORY DATA: Blood workup as follows: WBC 9.8, hemoglobin 14.9, hematocrit 47.2, and platelet count 279. Chemistry shows sodium 144, potassium 3.4, chloride 105, carbon dioxide 31, anion gap of 11, BUN 22, creatinine 0.9. IMPRESSION: Atrial fibrillation with controlled rate, hypertension, dementia, genitourinary bleed, altered mental status, hematuria on anticoagulation, borderline troponin positive secondary to chronic renal insufficiency, hemodynamic instability, cannot rule out underlying coronary artery disease as well. Hypertension, atrial fibrillation, hypokalemia, hypophosphatemia, cardiomyopathy, ejection fraction 25% on most recent echocardiogram dated 06/23/2017 shows moderate aortic regurgitation, [id number] tricuspid regurgitation, and mild mitral regurgitation. RECOMMENDATIONS: The patient is not a candidate to go for invasive cardiac workup as is pulling the line and climbed the side rails. Discussed with niece, Mya, medical treatment recommended for now. Suggest to continue Cardizem CD 120 mg daily, continue baby aspirin, continue Plavix for 4 weeks, supplement aggressively potassium as needed, continue gentle diuretics. We will change to p.o. and continue metoprolol. We will follow with you. We will change Lasix as mentioned to p.o. from tomorrow. He will repeat the lab in the morning. Discharge planning, medical treatment. I believe 20 of K-dur in the morning with the breakfast. Thank you Dr. Dill for providing the opportunity in taking care of the patient, Catarino Gonsalez. Xena Lozano MD [facility] # [id number]
[2017-06-20 01:02] VITALS: RESP 20
[2017-06-20 07:09] LABS: BASO # 0.05 K/mm3 (0.0-2.0); BASO % 0.5 % (0.0-3.0); EOS # 0.5 (0.0-0.7); EOS % 5.8 % (1.5-5.0); GRAN # 6.96 (1.4-6.5); GRAN % 74.2 % (50.0-68.0); HEMOGLOBIN 15.3 g/dL (14.0-18.0); LYMPH # 1.1 (1.2-3.4); LYMPH % 12.2 % (22.0-35.0); MEAN CELL VOLUME 95.1 fl (80.0-105.0); MEAN CORPUSCULAR HEMOGLOBIN 29.7 pg (25.0-35.0); MEAN CORPUSCULAR HGB CONC 31.2 g/dl (31.0-37.0); MEAN PLATELET VOLUME 10.8 fl (7.0-11.0); MONO # 0.7 (0.1-0.6); MONO % 7.3 % (1.0-6.0); RBC 5.15 10^6/uL (3.5-6.1); WHITE BLOOD COUNT 9.4 10^3/ul (4.5-11.0)
[2017-06-20 07:44] LABS: ALB/GLOB RATIO 0.8 (1.1-1.8); ALBUMIN 2.9 g/dL (3.0-4.8); ALT/SGPT 27 U/L (7-56); AST/SGOT 27 U/L (17-59); BLOOD UREA NITROGEN 22 mg/dL (7-21); CALCIUM 8.9 mg/dL (8.4-10.5); GFR AFRICAN-AMERICAN > 60; GFR NON-AFRICAN AMERICAN > 60
[2017-06-20] MEDS: Potassium Chloride 20 mEq ER Tab PO SCH (09:57)
[2017-06-20] MEDS: diltiaZEM 120 mg/24 Hours CD Cap PO SCH (09:58)
[2017-06-20] MEDS: Potassium & Sodium Phosphate PO SCH ×2 (09:58→17:32)
[2017-06-20] MEDS: POLYETHYLENE GLYCOL 3350 17 GM/Dose PACKET PO SCH ×2 (09:58→17:33)
--- NOTE | 2017-06-20 11:13 | PN ---
DATE: CONSULTING PHYSICIAN: Dr. Xena Lozano. REASON FOR CONSULTATION AND FOLLOWUP: Atrial fibrillation, moderate heart rate, very combative, one-to-one. SUBJECTIVE: The patient denies any chest pain, any shortness of breath, very much combative, kicking and pushing everybody. OBJECTIVE: GENERAL: Not in apparent distress, through one-to-one observation. VITAL SIGNS: As follows; temperature afebrile, heart rate 100, and blood pressure 124/80. HEENT: PERRLA intact. NECK: Supple. No carotid bruits or thyromegaly. CHEST: Clear to auscultation. HEART: S1 and S2 regular. ABDOMEN: Soft. EXTREMITIES: Clubbing and cyanosis negative. LABORATORY DATA: Blood workup as follows: WBC 9.5, hemoglobin 15.3, hematocrit 49, and platelet count 316. Chemistry shows sodium 144, potassium 3.3, chloride 105, carbon dioxide 29, anion gap of 13, BUN 22, creatinine 0.7, total protein 6.4, albumin 2.9, albumin-globulin ratio 0.9. IMPRESSION: Protein-calorie malnutrition, which was not present on admission; hypokalemia; atrial fibrillation; combative; hematuria, off Lovenox; while the patient was in the Lovenox, hematuria; renal insufficiency, improved. Echo shows ejection fraction of 25%, moderate aortic regurgitation, moderate to severe tricuspid regurgitation, and mild mitral regurgitation, borderline troponin positive on admission. Not a candidate for long-term anticoagulation because of hematuria. Not a candidate to go to the [facility]. The patient is demented and very much combative. The patient was started on aspirin and Plavix. The patient did not take any pills yesterday. Given IM Geodon and Ativan to calm him down. RECOMMENDATION: Aggressive medical treatment. We will supplement with electrolytes as needed. Lasix changed to p.o. Continue potassium supplement. Continue Plavix and baby aspirin, medical treatment, not a candidate to go to the [facility]. We will follow with you. Continue Cardizem CD 120 mg to control the heart rate and blood pressure for AFib as well. Discharge planning needs a long-term care facility. In addition to 20, we will give one dose of 40 at 12 noon. Xena Lozano MD [facility] # [id number]
[2017-06-20] MEDS ORDERED: Potassium Chloride 20 mEq ER Tab PO ONE (12:00)
--- NOTE | 2017-06-20 13:14 | PN ---
DATE: SUBJECTIVE: The patient is an 87-year-old, seen and examined, seems to be sleepy secondary to that was just given, not eating, seems to be confused and disoriented, awaiting Psych input. PHYSICAL EXAMINATION: VITAL SIGNS: He is afebrile, pulse 75, respirations 20, and blood pressure 139/94. LUNGS: Bilateral good airflow. No rhonchi or crackles. HEART: S1 and S2 audible. ABDOMEN: Soft, nontender. No rebound. No guarding. NEUROLOGIC: The patient is awake, alert and oriented, able to communicate. LABORATORY DATA: WBC is 9.4, hemoglobin 15, hematocrit 49, platelets 316. Chemistry; sodium 144, potassium 3.3, chloride 105, CO2 of 29, BUN 22, creatinine 0.7, blood sugar of 82. ASSESSMENT: 1. Altered mental status. 2. Dementia with agitation. 3. Hypokalemia. 4. Poor oral intake. 5. Electrolyte imbalance. 6. Chronic atrial fibrillation. 7. Traumatic hematuria. PLAN: Awaiting Psych input. Continue on nitrofurantoin. Awaiting subacute rehab to long-term placement. Parish Dill MD
--- NOTE | 2017-06-21 01:22 | CP.PCM.PN ---
Subjective - Date & Time of Evaluation Date of Evaluation: 06/21/17 Time of Evaluation: 01:16 - Subjective Subjective: Patient was seen at bedside. Because he was agitated as per nurse. Has been on Ativan 0.25 mg PO TID prn for agitation. He is saying that he is hearing lot of noise. Can not tell me where he is or what month is this. Medical record was reviewed. This 87 year old white male was admitted with history of fall outside of his house while going to his doctor's office, NSTEMI, new onset atrial fibrillation. Has PMH of BPH, dementia, chronic constipation, falls. 145/79, 75/min.Pulse ox 98% RA, FSBS-135 mg %. Objective - Vital Signs/Intake and Output Vital Signs (last 24 hours): Temp Pulse Resp BP Pulse Ox 99.0 F 68 20 133/97 H 99 06/20/17 06:00 06/20/17 17:32 06/20/17 06:00 06/20/17 17:32 06/20/17 06:00 Intake and Output: 06/20/17 06/21/17 18:59 06:59 Intake Total 240 Output Total 1250 Balance -1010 - Medications Medications: Current Medications Aspirin (Ecotrin) 81 mg PO DAILY [facility] Last Admin: 06/20/17 09:59 Dose: 81 mg Clonidine HCl (Catapres-Tts2 0.2 Mg/24 Hr) 1 patch TD Q7D@1000 [facility] Last Admin: 06/19/17 18:44 Dose: 1 patch Clopidogrel Bisulfate (Plavix) 75 mg PO DAILY [facility] Last Admin: 06/20/17 09:58 Dose: 75 mg Diltiazem HCl (Cardizem Cd) 120 mg PO DAILY [facility] Last Admin: 06/20/17 09:58 Dose: 120 mg Docusate Sodium (Colace) 100 mg PO BID [facility] Last Admin: 06/20/17 17:33 Dose: Not Given Famotidine (Pepcid) 20 mg PO DAILY [facility] Last Admin: 06/20/17 09:59 Dose: 20 mg Furosemide (Lasix) 40 mg PO DAILY [facility] Last Admin: 06/20/17 09:59 Dose: 40 mg Hydralazine HCl (Apresoline) 10 mg IVP Q6 PRN PRN Reason: for SBP>170 Lorazepam (Ativan) 0.25 mg PO TID [facility] PRN Reason: Protocol Last Admin: 06/20/17 17:33 Dose: 0.25 mg Metoprolol Tartrate (Lopressor) 25 mg PO BID [facility] Last Admin: 06/20/17 17:32 Dose: 25 mg Mirtazapine (Remeron) 15 mg PO HS [facility] Last Admin: 06/20/17 22:10 Dose: Not Given Nitrofurantoin Macrocrystals (Macrobid) 100 mg PO Q12 [facility] Last Admin: 06/20/17 22:10 Dose: Not Given Polyethylene Glycol (Miralax) 17 gm PO BID [facility] Last Admin: 06/20/17 17:33 Dose: Not Given Potassium Chloride (K-Dur 20 Meq Er Tab) 20 meq PO BRK [facility] Last Admin: 06/20/17 09:57 Dose: 20 meq Potassium Phos/Sodium Phos (Neutra-Phos) 1 pkt PO BID [facility] Last Admin: 06/20/17 17:32 Dose: 1 pkt Tamsulosin HCl (Flomax) 0.4 mg PO DAILY [facility] Last Admin: 06/20/17 09:59 Dose: 0.4 mg - Labs Labs: 06/20/17 06:00 06/20/17 06:00 PT 12.9 SECONDS (9.4-12.5) H 06/18/17 06:15 INR 1.12 (0.93-1.08) H 06/18/17 06:15 APTT 31.5 Seconds (25.1-36.5) 06/14/17 06:00 Lab Studies 06/21/17 06/20/17 06/20/17 Range/Units : 06:00 06:00 WBC 9.4 (4.5-11.0) 10^3/ul RBC 5.15 (3.5-6.1) 10^6/uL Hgb 15.3 (14.0-18.0) g/dL Hct 49.0 (42.0-52.0) % MCV 95.1 (80.0-105.0) fl MCH 29.7 (25.0-35.0) pg MCHC 31.2 (31.0-37.0) g/dl RDW 16.0 H (11.5-14.5) % Plt Count 316 (120.0-450.0) 10^3/uL MPV 10.8 (7.0-11.0) fl Gran % 74.2 H (50.0-68.0) % Lymph % (Auto) 12.2 L (22.0-35.0) % Delta % (Auto) 7.3 H (1.0-6.0) % Eos % (Auto) 5.8 H (1.5-5.0) % Baso % (Auto) 0.5 (0.0-3.0) % Gran # 6.96 H (1.4-6.5) Lymph # 1.1 L (1.2-3.4) Delta # 0.7 H (0.1-0.6) Eos # 0.5 (0.0-0.7) Baso # 0.05 (0.0-2.0) K/mm3 Sodium 144 (132-148) mmol/L Potassium 3.3 L (3.6-5.0) mmol/L Chloride 105 (98-107) mmol/L Carbon Dioxide 29 (21-33) mmol/L Anion Gap 13 (10-20) BUN 22 H (7-21) mg/dL Creatinine 0.7 L (0.8-1.5) mg/dl Est GFR ( Amer) > 60 Est GFR (Non-Af Amer) > 60 POC Glucose (mg/dL) 135 H (65-110) mg/dL Random Glucose 82 (70-110) mg/dL Calcium 8.9 (8.4-10.5) mg/dL Phosphorus 3.4 (2.5-4.5) mg/dL Magnesium 2.0 (1.7-2.2) mg/dL Total Bilirubin 1.4 H (0.2-1.3) mg/dL AST 27 (17-59) U/L ALT 27 (7-56) U/L Alkaline Phosphatase 182 H (38-126) U/L Total Protein 6.4 (5.8-8.3) g/dL Albumin 2.9 L (3.0-4.8) g/dL Globulin 3.5 gm/dL Albumin/Globulin Ratio 0.8 L (1.1-1.8) - Constitutional Appears: No Acute Distress - Head Exam Head Exam: ATRAUMATIC, NORMAL INSPECTION, NORMOCEPHALIC - Eye Exam Eye Exam: Normal appearance - ENT Exam ENT Exam: Normal External Ear Exam - Neck Exam Neck Exam: Normal Inspection - Respiratory Exam Respiratory Exam: NORMAL BREATHING PATTERN - Cardiovascular Exam Cardiovascular Exam: absent: JVD - GI/Abdominal Exam GI & Abdominal Exam: absent: Distended - Rectal Exam Rectal Exam: Deferred - Exam Additional comments: Deferred. - Extremities Exam Extremities Exam: Normal Inspection - Back Exam Back Exam: NORMAL INSPECTION - Neurological Exam Neurological Exam: Altered - Psychiatric Exam Psychiatric exam: Agitated - Skin Skin Exam: Normal Color Assessment and Plan - Assessment and Plan (Free Text) Assessment: Agitation. Dementia. NSTEMI. New onset atrial fibrillation. S/P fall. BPH. Chronic constipation. Hypokalemia. Plan: Ativan 0.25 mg IV stat. Continue present management.
[2017-06-21] MEDS: diltiaZEM 120 mg/24 Hours CD Cap PO SCH (11:22)
[2017-06-21] MEDS: Potassium Chloride 20 mEq ER Tab PO SCH (11:23)
[2017-06-21] MEDS: POLYETHYLENE GLYCOL 3350 17 GM/Dose PACKET PO SCH ×2 (11:24→17:58)
[2017-06-21] MEDS: Potassium & Sodium Phosphate PO SCH (11:25)
[2017-06-22] MEDS: Potassium Chloride 20 mEq ER Tab PO SCH (08:37)
[2017-06-22] MEDS: diltiaZEM 120 mg/24 Hours CD Cap PO SCH (10:36)
[2017-06-22] MEDS: POLYETHYLENE GLYCOL 3350 17 GM/Dose PACKET PO SCH ×2 (10:38→18:09)
[2017-06-22] MEDS: Potassium & Sodium Phosphate PO SCH ×2 (10:50→18:10)
--- NOTE | 2017-06-22 19:21 | PN ---
DATE: SUBJECTIVE: The patient is 87 years old, seen and examined, lying in bed, seems to be confused and disoriented, noncooperative, not eating well. According to nurse, he is throwing punches, cursing, not being very cooperative. PHYSICAL EXAMINATION: VITAL SIGNS: The patient is afebrile, pulse 76, respirations 20, and blood pressure 123/73. LUNGS: Bilateral fair airflow. No rhonchi or crackles. HEART: S1 and S2 audible. ABDOMEN: Soft, nontender. No rebound. No guarding. NEUROLOGIC: He is sleepy but arousable and combative. LABORATORY DATA: Blood sugar is 135. ASSESSMENT: 1. Dementia with agitation. 2. Altered mental status. 3. Resolving urinary tract infection. 4. History of hypertension. 5. Electrolyte imbalance. 6. Poor oral intake. 7. Traumatic hematuria, improved. 8. Chronic atrial fibrillation, rate control. PLAN: Awaiting psych input. At this point, it is very hard to make discharge plan because of his agitated behavior. The patient is still on one to one. Started the patient on Risperdal but he is not very cooperative to take medication. I will discuss with psych in the a.m. and make further plan. Parish Dill MD
--- NOTE | 2017-06-23 08:43 | PN ---
DATE: 06/20/2017 He is being seen today for a followup consultation. PRESENTATION: The patient is an 87-year-old white male seen at the bedside. I have seen him earlier in the week for a consultation and signed off. Evidently, the patient had a difficult evening last night and was climbing out of bed, confused, unable to calm down, kicking and swinging at staff, taking his gown and his covers off, climbing in and out of the bed. He received the dose of Geodon, which enabled him to finally calm down. He had originally been brought to the hospital on 06/12/2017 for a fall. He had been going to doctor's office visit with his niece and he fell, she was very concerned about the fact that his dementia seemed to be getting worse and he was brought to the hospital. The belief at that time was that he was not able to be safe anymore. He had been calm and cooperative in the hospital; however, last night was a change in how he had normally been. When I checked his medication schedule, he had not been given his mirtazapine last night which due to the sedative value would have been very helpful in preventing this as if it would have helped the patient sleep, so that is probably part of the problem. Today, I did discuss the patient with the nurse. I saw him at the bedside. He was very tired and difficult to arouse probably after his act of evening last night. I spoke with the nurse practitioner on the floor there and the nursing staff reviewed the records and checked the medication schedule, and also added Ativan 0.25 mg p.o. t.i.d. to help him to be a little more comfortable and calmer during the day as he is quite confused. MEDICATIONS: The patient's other medications include aspirin, clonidine, Plavix, Cardizem, Colace, Pepcid, Lasix, Apresoline, Lopressor, Remeron 15 mg at bedtime, Macrobid, MiraLax, K-Dur, sodium phosphate (Neutra-Phos), and Flomax. VITAL SIGNS: His current vital signs include pulse rate of 68 and blood pressure of 133/97. MENTAL STATUS EXAM: The patient was sedated and barely arousable at the time at which I saw him, so it is unable to do a mental status exam. However, according to the nurse's notes and previous examination, the patient has been confused most of the time and he has been here with the poor ability, attention span and inability to recall things even when he is reoriented. DIAGNOSTIC IMPRESSION: Dementia with behavioral disturbance. PLAN: The patient's medication has been adjusted to add some Ativan and the nursing staff has been educated to the importance of receiving his mirtazapine at night to help him sleep, so that he is not often confused. We were seen that since he has had other nights mirtazapine, him not getting his dosage last night which probably part of the problem. According to the social work notes most recent, the patient will be going to a longterm tomorrow. He is psychiatrically stable for transfer, patient not in imminent danger to self or others. I would recommend that he see a psychiatrist within 48 to 72 hours of getting notes for followup and make sure pt's mental status is improving as well as pt tolerates medications well. Thank you for the consult. Ragini Negrete APN IGNCAIO
--- NOTE | 2017-06-23 09:07 | PN ---
DATE: 06/21/2017 SUBJECTIVE: The patient is an 87-year-old male seen and examined, lying in bed and seems to be agitated, yelling at nurses, not very cooperative. He did not eat much. He is still on one-to-one since last night, since he was climbing out of bed. It is unsafe to discharge, although plan was to discharge him today, but this is going to be held. PHYSICAL EXAMINATION GENERAL: He is sleepy, but arousable. VITAL SIGNS: He is afebrile, pulse is 77, respirations are 18, and blood pressure is 134/79. LUNGS: Bilateral fair airflow. No rhonchi or crackle. HEART: S1 and S2 audible. ABDOMEN: Soft and nontender. No rebound and no guarding. NEUROLOGIC: The patient is awake and alert, but confused and disoriented. LABORATORY DATA: Blood sugar is 135. Urine positive for coagulase-negative Staphylococcus. ASSESSMENT AND PLAN: 1. Dementia with agitation. 2. Altered mental status. 3. Poor oral intake. 4. Coagulase-negative Staphylococcus urinary tract infection. 5. Deconditioning. PLAN: Currently, the patient is on Plavix, Remeron, Flomax, clonidine, and diltiazem. Awaiting Psychiatry evaluation. So discharge is held and we will reevaluate and make further plan. Parish Dill MD
[2017-06-23] MEDS: diltiaZEM 120 mg/24 Hours CD Cap PO SCH ×3 (09:54→13:13)
[2017-06-23] MEDS: Potassium Chloride 20 mEq ER Tab PO SCH ×3 (09:59→13:15)
[2017-06-23] MEDS: POLYETHYLENE GLYCOL 3350 17 GM/Dose PACKET PO SCH ×3 (10:00→17:44)
[2017-06-23] MEDS: Potassium & Sodium Phosphate PO SCH ×3 (10:02→17:45)
[2017-06-23] MEDS ORDERED: OLANZapine 5 mg Disintegrating Tab PO SCH (11:45)
--- NOTE | 2017-06-23 13:58 | PN ---
DATE: SUBJECTIVE: The patient is an 87-year-old seen and examined, remained confused, disoriented, non-cooperative, not taking any oral medication either, seen by psychiatrist and medication is adjusted. PHYSICAL EXAMINATION: VITAL SIGNS: He is afebrile. Pulse 65, respirations 20, and blood pressure 154/99. LUNGS: Bilateral fair airflow. No rhonchi or crackle. HEART: S1 and S2, audible. ABDOMEN: Soft and nontender. No rebound. No guarding. NEUROLOGIC: The patient is sleepy, but arousable. Not communicative. LABORATORY DATA: Blood sugar is 137. ASSESSMENT: 1. Altered mental status. 2. Dementia with agitation. 3. Poor oral intake. 4. Status post traumatic hematuria. PLAN: We will continue the patient on current medication. He is on Ativan 0.5 t.i.d. p.r.n. Continue on diltiazem, clonidine, aspirin, and Flomax. Since his oral intake is poor, I am going to discontinue his Lasix acute renal failure. Zyprexa has been recommended also. Once the patient's mental status is improved, we will make discharge plan for subacute rehab. Parish Dill MD
--- NOTE | 2017-06-23 15:59 | PN ---
DATE: 06/23/2017 REASON FOR CONSULTATION AND FOLLOWUP: Atrial fibrillation, moderate heart rate, combative one-to-one confused. SUBJECTIVE: Not in distress, but very combative and does not allow to listen to the chest. PHYSICAL EXAMINATION: GENERAL: Lying flat in the bed, not in apparent distress. VITAL SIGNS: Temperature afebrile, heart rate 65, and blood pressure 127/73. HEENT: PERRLA, extraocular muscles intact. NECK: Supple. No carotid bruits or thyromegaly. CHEST: Clear to auscultation. HEART: S1 and S2, regular. ABDOMEN: Soft. EXTREMITIES: Clubbing and cyanosis negative. LABORATORY DATA: Blood workup as follows: WBC 9.4, hemoglobin 15.9, hematocrit 49.0, platelet count 316. Chemistry shows sodium 144, potassium 3.3, chloride 105, carbon dioxide 29, anion gap of 13, BUN 23, and creatinine 0.7 on 06/20/2017. IMPRESSION: Protein calorie malnutrition, which was not present on admission, moderate hypokalemia, atrial fibrillation, combative hematuria. Off Lovenox because of hematuria. Renal insufficiency, improving. Echo shows ejection 25%, moderate aortic regurgitation, moderate to severe tricuspid regurgitation, mild mitral regurgitation, borderline troponin positive on admission. Not a candidate for long-term anticoagulation because of hematuria. Not a candidate to go the phlebotomist lab assistant for treatment of coronary artery disease because of very combative . RECOMMENDATIONS: Continue aspirin. Continue Plavix for 4 weeks, baby aspirin or Plavix for atrial fibrillation as well. Continue Cardizem CD 120 mg daily, continue hydralazine. Discharge planning, medical treatment. No invasive cardiac workup at this time. Thank you Dr. Dill for providing us the opportunity in taking care of the patient, Zoe Toribio. Xena Lozano MD
[2017-06-23] MEDS: OLANZapine 5 mg Disintegrating Tab PO SCH (17:45)
--- NOTE | 2017-06-24 08:37 | CON ---
DATE: 06/23/2017 He is being seen today for a followup consultation. PRESENTATION: The patient is an 87 year old white male seen at bedside. He is extremely disoriented, picking at the sheets, becomes agitated and irritable as soon as I see him, indicates he wants to leave the hospital and I need to get him out of here now. Dark brown urine was noted in his Mir bag. In reviewing his medications, I see that the patient has not been taking his medications, he has refused them. The patient had been initially admitted to the hospital on 06/12/2017, brought in by a neighbor because he fell on his way to going to see the doctor. Evidently, there has been increasing dementia at home and it is the feeling of his niece, who is his nearest relative and the neighbor said he can no longer stay alone anymore. The patient was initially seen in consultation for altered mental status and agitation. He was calm, so we have signed off, he has been asked to come back because the patient's behavior has gotten very much more difficult and he needs to be cleared to go to a subacute or jail. In review of the nurse's notes, the patient has been pulling out his catheter as well as refusing his medications. He has been completely disoriented, though he does respond to his name. As of this morning, the patient was refusing all p.o. medications, agitated, screaming and kicking. CURRENT MEDICATIONS: Have been changed. Psychiatrically, he had been on Ativan 0.25 mg one p.o. t.i.d., I increased that to 0.5 mg one p.o. t.i.d. He was on Risperdal 0.5 mg b.i.d. I discontinued that and put him on olanzapine 5 mg one p.o. b.i.d. He is on mirtazapine 15 mg one at bedtime, of concern it was also noted that he was not taking his medication at all. He was not taking Flomax, potassium, Lopressor, Colace, Cardizem, Plavix and Ecotrin. Case was reviewed with the nurse practitioner for 4:00 a.m. We worked together to educate the nursing staff, getting medications into him is very important. He is not cognizant, and he will not stabilize without his medication and further more if we just get him psychiatric medications, he has significant medical things going on that need to be managed as well, but it is very important for the medication to get into him. He is not cognizant, so he cannot refuse, though it is important to just go ahead with that and in checking with the staff later, the medications were administered. PHYSICAL EXAMINATION: VITAL SIGNS: Today, temperature of 97.6, pulse rate of 84, blood pressure of 156/96, respiratory rate of 20 and an O2 sat of 100. MENTAL STATUS EXAM: The patient is not alert. He is disoriented. He is agitated. He is labile; however, which has been closely observed by staff for safety. They have been instructed to make sure he gets his medication, and the patient in the past had a very good appetite, enjoyed his food so the importance of making sure that he eats as well. LABORATORY DATA: Of note, his white blood cell count as stabilized, it is 9.4, on the it was 12.0, on it was 15.6, that is improved; however, it is important that he receive his antibiotics and medications as prescribed. DIAGNOSTIC IMPRESSION: Dementia with behavioral disturbance. PLAN: The patient clearly is not stable at this time. His medications have been changed and the nursing staff has been educated as to the importance of him actually getting his medications in order for him to stabilize both mentally and physically. We will continue to monitor the patient and follow him daily. This case has been discussed with Dr. Goldberg. Thank you for the consult. Ragini Negrete APN
[2017-06-24 08:41] VITALS: BP 136/76; PULSE 52; TEMP 97.9; O2SAT 98
[2017-06-24] MEDS: OLANZapine 5 mg Disintegrating Tab PO SCH (10:15)
[2017-06-24] MEDS: Potassium Chloride 20 mEq ER Tab PO SCH (10:15)
[2017-06-24] MEDS: diltiaZEM 120 mg/24 Hours CD Cap PO SCH (10:25)
[2017-06-24] MEDS: Potassium & Sodium Phosphate PO SCH (10:25)
[2017-06-24] MEDS: POLYETHYLENE GLYCOL 3350 17 GM/Dose PACKET PO SCH (10:26)
--- NOTE | 2017-06-24 11:39 | PN ---
DATE: 06/24/2017 REASON FOR CONSULTATION AND FOLLOWUP: Atrial fibrillation, moderate heart rate, combative one-to-one and confused. SUBJECTIVE: The patient is not in distress, lying flat in the bed. OBJECTIVE/PHYSICAL EXAMINATION: As follows: GENERAL: Not in apparent distress. VITAL SIGNS: Temperature is afebrile, heart rate is 50, and blood pressure is 136/76. HEENT: PERRLA. Extraocular muscles are intact. NECK: Supple. No carotid bruits or thyromegaly. CHEST: Clear to auscultation. HEART: S1 and S2, regular. ABDOMEN: Soft. EXTREMITIES: Clubbing and cyanosis negative. LABORATORY DATA: Blood workup as follows: WBC of 9.4, hemoglobin of 15.9, hematocrit of 49.0, and platelet count of 316. Chemistry shows sodium of 144, potassium of 3.3, chloride of 105, carbon dioxide of 29, anion gap of 13, BUN of 22, and creatinine of 0.7. Total protein of 6.4, albumin of 2.9, and albumin to globulin ratio of 0.8. IMPRESSION AND PLAN: Hypokalemia, protein-calorie malnutrition, mild which is not present on admission, combative confused, atrial fibrillation, hematuria on Lovenox, altered mental status, dementia, cardiomyopathy, moderate aortic regurgitation, moderate to severe tricuspid regurgitation, mild mitral regurgitation, and borderline positive troponin on admission. Not a candidate for long-term anticoagulation because of hematuria. Not a candidate for go to the catheterization laboratory because of mentation and dementia. The patient is combative pulling the line, treat medically. Continue aspirin and continue Plavix for 4 weeks, baby aspirin alone, long-term anticoagulation for atrial fibrillation. Not a candidate because the patient has hematuria. Continue Cardizem and discharge planning. The patient is to continue low dose Lasix because of cardiomyopathy with subsequent potassium. We will repeat blood workup. Further recommendation depend upon hospital course and the blood workup. Xena Lozano MD
--- NOTE | 2017-06-25 03:32 | DS ---
HISTORY OF PRESENT ILLNESS: The patient is an 87-year-old seen and examined, still agitated at times, but seems to be sleepy . OBJECTIVE: VITAL SIGNS: He is afebrile, pulse is 52, respirations are 20, and blood pressure is 136/76. LUNGS: Bilateral fair airflow. No rhonchi or crackle. HEART: S1 and S2 audible. ABDOMEN: Soft and nontender. No rebound. No guarding. NEUROLOGIC: The patient is awake, alert, oriented, and communicative. LABORATORY DATA: WBC is 9.4, hemoglobin is 15, hematocrit is 49, and platelets are 316. Chemistry; sodium 144, potassium 3.3, chloride 105, and CO2 of 29. ASSESSMENT: 1. Altered mental status. 2. Dementia with agitation. 3. Hypertension. 4. Electrolyte imbalance. 5. Status post traumatic hematuria. PLAN: The patient has been started on Zyprexa and Remeron and seems to be doing well on that. His blood pressure seems to be controlled. Once his mental status seems to have improved, we will make discharge plan. Parish Dill MD
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
== END 2017-06-24 14:45 | DRG 280 ==
LOC: ED 10:43 → ERH 12:38 → 2RSO 17:04 → 3RNO 06-17 17:02
PROVIDERS: ADMIT Internal Medicine Medical Oncology; ATTEND Internal Medicine
DX: I21.4 Non-ST elevation (NSTEMI) myocardial infarction (principal); I50.23 Acute on chronic systolic (congestive) heart failure; N17.9 Acute kidney failure, unspecified; E44.0 Moderate protein-calorie malnutrition; E83.39 Other disorders of phosphorus metabolism; E83.42 Hypomagnesemia; I08.3 Combined rheumatic disorders of mitral, aortic and tricuspid valves; F01.51 Vascular dementia, unspecified severity, with behavioral disturbance; G93.89 Other specified disorders of brain; I48.2 Chronic atrial fibrillation; I13.0 Hypertensive heart and chronic kidney disease with heart failure and stage 1 through stage 4 chronic kidney disease, or unspecified chronic kidney disease; I42.0 Dilated cardiomyopathy; N39.0 Urinary tract infection, site not specified; T83.83XA Hemorrhage due to genitourinary prosthetic devices, implants and grafts, initial encounter; W19.XXXA Unspecified fall, initial encounter; D64.9 Anemia, unspecified; E78.5 Hyperlipidemia, unspecified; E87.6 Hypokalemia; I25.10 Atherosclerotic heart disease of native coronary artery without angina pectoris; I49.3 Ventricular premature depolarization; K59.09 Other constipation; N18.9 Chronic kidney disease, unspecified; B95.7 Other staphylococcus as the cause of diseases classified elsewhere; N40.0 Benign prostatic hyperplasia without lower urinary tract symptoms; R31.0 Gross hematuria; Y84.6 Urinary catheterization as the cause of abnormal reaction of the patient, or of later complication, without mention of misadventure at the time of the procedure; Z79.01 Long term (current) use of anticoagulants; Z79.02 Long term (current) use of antithrombotics/antiplatelets; Z79.82 Long term (current) use of aspirin; Z86.73 Personal history of transient ischemic attack (TIA), and cerebral infarction without residual deficits; Z91.81 History of falling; R40.2412 Glasgow coma scale score 13-15, at arrival to emergency department; Y92.007 Garden or yard of unspecified non-institutional (private) residence as the place of occurrence of the external cause